=== PATIENT | female | born 1970 | race Caucasian/White ===

== ENCOUNTER 2016-07-16 11:57 | Emergency (ER) | payer MEDICARE, MEDICAID ==
[2016-07-16] MEDS ORDERED: Sodium Chloride 0.9% 10 ML Syringe FLUSH PRN ×2 (12:07→12:14)
[2016-07-16] MEDS ORDERED: Sodium Chloride 0.9% 1,000 ML IV ONE (12:30)
[2016-07-16] MEDS ORDERED: Piperacillin/Tazobactam 3.375 GM in Sodium Chloride 0.9% 100 ML IV ONE (12:33)
[2016-07-16] MEDS ORDERED: Naloxone 0.4 MG/ML SDV ONE (12:41)
[2016-07-16] MEDS ORDERED: Rocuronium 50 MG/5 ML Vial ONE (13:00)
[2016-07-16] MEDS ORDERED: Succinylcholine 200 MG/10 ML MDV ONE (13:08)
[2016-07-16] MEDS ORDERED: Chlorhexidine Gluconate 0.12% Oral Rinse 15 ML Cup ONE ×2 (13:08→14:38)
[2016-07-16] MEDS ORDERED: Etomidate 2 MG/ML 10 ML SDV ONE (13:08)
[2016-07-16] MEDS ORDERED: Midazolam 1 MG/ML 2 ML SDV IVPUSH ONE (13:21)
[2016-07-16] MEDS ORDERED: Vancomycin 1 GM SDV ONE (13:25)
[2016-07-16] MEDS ORDERED: Sodium Chloride 0.9% 250 ML ONE (13:26)
[2016-07-16 13:31] LABS: CHLORIDE,CL 99 mmol/L (98-107); SODIUM,NA 133 mmol/L (136-145)
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
== END 2016-07-16 13:40 | disposition short-term general hospital (02) ==
LOC: VM.ED 11:57
PROC: 0BH17EZ Insertion of Endotracheal Airway into Trachea, Via Natural or Artificial Opening (ICD-10-PCS; principal; 2016-07-16)
DX: J96.91 Respiratory failure, unspecified with hypoxia (principal); T40.601A Poisoning by unspecified narcotics, accidental (unintentional), initial encounter; Y92.019 Unspecified place in single-family (private) house as the place of occurrence of the external cause; J69.0 Pneumonitis due to inhalation of food and vomit; I25.10 Atherosclerotic heart disease of native coronary artery without angina pectoris; I10 Essential (primary) hypertension; J45.909 Unspecified asthma, uncomplicated; J44.9 Chronic obstructive pulmonary disease, unspecified; K21.9 Gastro-esophageal reflux disease without esophagitis; G82.20 Paraplegia, unspecified; F41.8 Other specified anxiety disorders; F11.10 Opioid abuse, uncomplicated; Z79.899 Other long term (current) drug therapy
CPT/HCPCS: 31500; 36415; 36600; 71010; 80053; 80305; 81001; 82550; 82553; 82803; 83605; 83880; 84443; 84484; 85025; 85610; 86140; 87040; 94002; 96361; 96365; 96374; 96375; 99291; G0480; 93005; 99285-GF; A9270-GY; J0330; J2250; J2310; J2543; J3370; J7030; J7050

== ENCOUNTER 2016-12-14 15:34 | Emergency (ER) | payer MEDICARE, MEDICAID ==
[2016-12-14 15:52] VITALS: BP 104/66
[2016-12-14] MEDS ORDERED: Take Home: Ciprofloxacin 500 MG Tab, 2 Tab Pack PO ONE (17:49)
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
== END 2016-12-14 18:13 | disposition home or self-care (01) ==
LOC: VM.ED 15:34
DX: N39.0 Urinary tract infection, site not specified (principal); F32.9 Major depressive disorder, single episode, unspecified; Z88.2 Allergy status to sulfonamides
CPT/HCPCS: 51798; 81001; 87086; 87186; 99283; A9270

== ENCOUNTER 2016-12-20 07:58 | Inpatient (IN) | payer MEDICARE, MEDICAID ==
[2016-12-20 09:41] LABS: CHLORIDE,CL 108 mmol/L (98-107); SODIUM,NA 140 mmol/L (136-145)
[2016-12-20] MEDS ORDERED: Sodium Chloride 0.9% 1,000 ML IV ONE (09:54)
[2016-12-20] MEDS ORDERED: Levofloxacin/Dextrose 5%-Water 750 MG in Premix Bag 1 BAG IV ONE (09:54)
[2016-12-20] MEDS ORDERED: Piperacillin/Tazobactam 4.5 GM in Sodium Chloride 0.9% 100 ML IV SCH (12:00)
[2016-12-20] MEDS ORDERED: Nicotine 21 MG/24 Hr Patch TRDERM SCH (12:00)
[2016-12-20] MEDS ORDERED: NYSTATIN TOP PRN (12:03)
[2016-12-20] MEDS ORDERED: guaiFENesin 600 MG Tab.ER PO PRN (12:03)
[2016-12-20] MEDS ORDERED: NALOXONE HCL NS PRN (12:03)
[2016-12-20] MEDS ORDERED: Sodium Chloride 0.9% 1,000 ML IV SCH (12:15)
[2016-12-20] MEDS ORDERED: Albuterol 8 GM Inhaler INH PRN ×2 (12:22→13:14)
[2016-12-20] MEDS ORDERED: Calcium Carbonate/Vitamin D3 1250 MG-200 Unit Tab PO SCH (12:30)
[2016-12-20] MEDS ORDERED: Albuterol 0.083% 2.5 MG/3 ML Neb Soln ONE (12:37)
[2016-12-20] MEDS ORDERED: hydrOXYzine HCl 25 MG Tab PO PRN (13:07)
[2016-12-20] MEDS ORDERED: Docusate Sodium 100 MG Cap PO PRN (13:07)
[2016-12-20] MEDS ORDERED: Take Home: Albuterol 6.7 GM Inhaler, 1 Inhaler Pack INH PRN (13:07)
[2016-12-20] MEDS: Naloxone 0.4 MG/ML SDV IV PRN ×2 (13:20→13:41)
[2016-12-20] MEDS ORDERED: Nystatin Crm 30 GM Tube TOP PRN (13:30)
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
[2016-12-20] MEDS ORDERED: Carvedilol 6.25 MG Tab PO SCH ×2 (13:45→18:00)
[2016-12-20] MEDS ORDERED: Gabapentin 300 MG Cap PO SCH (14:00)
[2016-12-20 14:06] VITALS: BP 154/86
[2016-12-20] MEDS ORDERED: Propofol 200 MG/20 ML SDV ONE (15:33)
[2016-12-20] MEDS ORDERED: Chlorhexidine Gluconate 0.12% Oral Rinse 15 ML Cup ONE (15:33)
[2016-12-20] MEDS ORDERED: Midazolam 1 MG/ML 2 ML SDV ONE (15:33)
[2016-12-20] MEDS ORDERED: Rocuronium 50 MG/5 ML Vial ONE (15:34)
[2016-12-20] MEDS ORDERED: Succinylcholine 200 MG/10 ML MDV ONE (15:34)
[2016-12-20] MEDS ORDERED: Piperacillin/Tazobactam 3.375 GM in Sodium Chloride 0.9% 100 ML IV SCH (16:00)
--- NOTE | 2016-12-20 16:21 | HP ---
CHIEF COMPLAINT: Change of status. HISTORY OF PRESENT ILLNESS: The patient is a 46-year-old female with chronic medical problems including chronic pain, chronic anxiety, and multiple medical problems; who was brought in by ambulance from [place]. Her said she was just not feeling quite right in the last couple of days. She had been coughing more. She had been treated for bladder infection from the emergency room with Cipro. It was found that the bacteria was resistant to Cipro, so she was just changed to Macrobid on 12/19/2016. I am not certain if she has started that medication. The patient is a very poor historian. She is very lethargic and keeps falling asleep. Apparently, her fentanyl patch was taken off, which did seem to help with some arousability when she was first seen by Jamie Perry in the emergency room. The patient has been coughing. She denies choking on anything. She tends to want to fall back to sleep. She does have nebulizers, but it is unclear at home when she last used a nebulizer. She has not choked on anything that she is aware of. The patient normally sees Dr. Malina Samayoa as her primary care provider. To note, the patient last had been hospitalized at [facility] on 07/16/2016 with acute respiratory failure with major depression. She has had a fentanyl overdose, major depression, protein malnutrition, bilateral ischemic decubitus ulcers, and osteomyelitis. The patient had been at that time on a ventilator. She had some lung atelectasis, septic shock. CURRENT MEDICATIONS: Lacosamide 100 mg tablet 1 tablet b.i.d.; trazodone 50 mg 1 tablet at bedtime; Klonopin 0.5 mg, she takes a half a pill in the morning and half a pill at bedtime; vitamin D 50,000 units 1 pill once a week; Nyamyc 100,000 units/gram powder topically twice a day; fentanyl 50 mcg patch every 72 hours; guaifenesin D 60/600, 1 pill every 12 hours as needed; Lyrica 150 mg 1 pill 3 times a day; omeprazole 20 mg 1 pill a day; Cymbalta 60 mg 1 pill in the morning with a 30-mg capsule, she then takes 1 capsule every evening; carvedilol 6.25 mg 1 pill twice a day; Tylenol 325 one pill 3 times a day; albuterol inhalation 2 puffs every 4 hours as needed; Colace 100 mg 1 pill twice a day as needed; Atarax 25 mg 1 pill every 6 hours as needed; multivitamin 1 pill a day; calcium carbonate 500 mg 1 pill a day; MiraLAX 1 pill a day; Neurontin 300 mg 2 pills every 8 hours; Proventil 1 inhalation every 4 hours as needed; acetic acid 0.25% solution, she uses 10 mL to irrigate her pressure ulcer dressings; she has a Eyebrid Blaze infusion pump, which has intrathecal pump with baclofen 2000 mcg/mL at a rate of 100.2 mcg per day, number to call is [phone] for questions; Narcan 4 mg/10 mL spray into nostrils as needed; Cymbalta 30 mg 1 pill a day with 60-mg capsule, calcium carbonate 600+D one pill a day; ProAir 2 puffs every 4 to 6 hours as needed; nystatin powder she applies twice a day; simethicone 80 mg chewable every 4 hours as needed; recent use of Cipro for bladder infection and then just switched to Macrobid yesterday, and I am not certain if she started the medication. ALLERGIES: To sulfa. PAST MEDICAL HISTORY: The patient has chronic pain syndrome; she has had chronic depression; she has had neurogenic bladder; paraplegia; chronic anxiety disorder; intrathecal baclofen pump; seizure disorder; acute renal failure in the past; emphysema; she had a history of anemia; she has had protein-calorie malnutrition; iron deficiency anemia; hypertension; neuropathic pain; adrenal insufficiency; seizure disorder; agitation; mood disorder; neuropathic pain; insomnia; muscle spasms; paraplegia; she has had decubitus ulcers; presence of IVC filter; she has history of alcoholism, she has been abstinent; she is a smoker; she has had osteomyelitis; mucous plugging of her bronchi; and large liver. PAST SURGICAL HISTORY: She has had spinal rods in 2007, intrathecal baclofen pump in 2008, hysterectomy in 2007, partial appendectomy in 2009, skin flap surgery, she has had cholecystectomy in 1990, laparoscopic ileostomy in 2009, debridement procedure of right hip wound in 2012 and had a wound VAC at that time, she has had a in 1990 and 1992, debridement of right hip in 2012, tracheostomy in 2012, endoscopic gastrostomy in 2012, and small intestine surgery in 2010. She has had a rectal procedure for an ulcer in 2013, tracheostomy in 2013, PEG tube in 2013, debridement of ischial ulcer in 2013, pain control pump in 2014, debridement of right ulcer in 2014, she had tracheostomy in 2016, she had a feeding tube in 2016, exploratory lap on 08/19/2016 with takedown of gastric tube exploratory with large subcutaneous abscess, and she had a bronchoscopy on 09/03/2016. IMMUNIZATIONS: She has had a pneumococcal 23 on 04/08/2013, Tdap on 10/28/2007, and she has had flu shots. FAMILY MEDICAL HISTORY: Mother has had alcohol abuse. Father has had heart problems and heart disease. Paternal grandmother has had cancer. Paternal grandfather has had diabetes. Daughters had learning disabilities. Uncles had heart problems and heart disease. SOCIAL HISTORY: The patient is . She used to smoke up to 2 packs a day. She is now smoking E-cigarettes. Alcohol use, not current, sober since 2007. The patient is on disability. 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 She lives with her ex-. REVIEW OF SYSTEMS: She does have a cough. No vomiting. She does have chronic pain. She is lethargic and a poor historian. She does have ulcer on her buttocks. She does have a colostomy as well as a suprapubic catheter. PHYSICAL EXAMINATION: Vital Signs: The patient's blood pressure was 90/50, sats 96% on 3 L, pulse was 109, temperature was 96. Skin: [place], warm, and moist. HEENT: Pupils are equal and react to light. Pharynx is normal. She does cough. Heart: Slightly tachycardic. No murmurs heard. Lungs: Inspiratory crackles bilaterally. Abdomen: Bowel sounds present. She has colostomy as well as her suprapubic catheter. : Buttock area was not examined. She has a diaper on. Neuro: She does have slender lower legs with no feeling. She does not move. To note, the patient is quite lethargic. LABORATORY DATA: White blood cell count is 18.4, hemoglobin 14.9, her platelet count is 206 with 83 segs, 6 lymphocytes, and monos 8.7. Lactic acid normal at 0.5. CRP elevated at 2.6 and magnesium 2.1. Sodium 140, potassium 4.8, creatinine 1.0, BUN 54, glucose 85, and magnesium 2.1. AST of 47 and ALT 39. Troponin negative. Her CK was normal at 1.2. Urinalysis was dark turbid, 30 units of protein, positive nitrite, small bilirubin, leukocyte esterase positive, 75 to 100 white blood cells, moderate squamous epithelial cells, and bacteria moderate. Urine toxicology was negative. IMAGING: Chest x-ray does show bilateral infiltrates. A head CT was done of which preliminary report was negative. EKG shows normal sinus rhythm. Nonspecific T-wave. IMPRESSION: 1. Pneumonia. 2. Lethargy. 3. Delirium, multifactorial, possibly drug use versus medical illness. 4. History of chronic pain syndrome. 5. Recent urinary tract infection. 6. Paraplegia. 7. Known intrathecal pump. PLAN: The patient will be admitted to acute care. We will give her an albuterol neb right now. She will be given IV hydration. We will place her on Zosyn 4.5 grams IV q.6 hours. Code level status was discussed with the patient. She kept drifting off into sleep, and I am not certain if she understood what I was asking her. I did ask her code level status, and he states that she is code level 1. So, we will still go by those wishes. To note, her Duragesic patch was removed on admission. Blood gases are pending at the time of this admission summary. If the patient's status deteriorates, she may need transfer to a higher level of care hospital. She may possibly need BiPAP to be placed on her. She may need Narcan to be given for lethargy as well. The patient's status is somewhat trepidacious. She will also need continued wound cares for her ischial ulcers. Dr. Malina Samayoa is made aware of the patient's admission. GM12/20/2016 13:25:15 MODL: 12/20/2016 16:14:56 /[id number]
--- NOTE | 2016-12-20 17:06 | PN ---
Progress Note for HUGO ECHEVARRIA Date: 12/20/2016 Room #: VM.201 SUBJECTIVE: The patient had a change of respiratory status since being admitted to the floor. She became very somnolent. She did require 2 doses of Narcan to help improve sensation. Blood gases from admission became available, at first I thought her venous blood gases, however, when they were repeated they were actually worse venous and so her pH was 7.07 , pCO2 69, pO2 40 , HCO3 23. The patient then was going to have BiPAP placed. Because of the amount of nursing care she required and to keep her stable with breathing as she did tend to only have 86% saturations when she had been on 15 L. I did initiate transfer to [facility], at 15:00, talked to hospitalist Dr. Pedroza. He did agree to accept the patient. He recommended that she be intubated prior to transfer to have safety with transfer because of concerns with respiratory problems. The patient did agree to be intubated and this was carried ou by Fernando Matos CRNA. She did become hypotensive after coming intubated with blood pressure going down to 60/40. The patient was placed in reverse Trendelenburg and a saline bolus of 100 mL were given, which did improve blood pressure up to 80/40. Breath sounds hear A chest x-ray was repeated after intubation at 1549 hours and it did show ET tube to be appropriately placed. The patient was sent by [facility] transport to [facility]. Family had been updated by nursing staff about patient's need to transfer. Her vital signs have improved at the time of transfer. Time spent at bedside with patient with change in status was 60 minutes. GM12/20/2016 16:07:40 MODL: 12/20/2016 16:56:31 /[id number] MTDD
[2016-12-20] MEDS ORDERED: Pregabalin 50 MG Cap PO SCH (20:00)
[2016-12-20] MEDS ORDERED: traZODone 50 MG Tab PO SCH (20:00)
[2016-12-20] MEDS ORDERED: ClonazePAM 0.5 MG Tab PO SCH (20:00)
[2016-12-20] MEDS ORDERED: DULoxetine 30 MG Cap PO SCH (20:00)
[2016-12-20] MEDS ORDERED: LACOSAMIDE 100 MG PO SCH (20:00)
--- NOTE | 2016-12-20 22:13 | PROC ---
TITLE: Intubation note. I was called by Dr. Jeannine So to intubate this patient. The patient is being transferred and was suffering from hypoxia and respiratory distress. When I arrived, she was on the BiPAP, she was breathing a little more regularly, pulse rate was 146, blood pressure was 111/66, respiratory rate was elevated. The patient is awake and conversive appropriately. The intubation was deemed necessary by the receiving physician at [facility] at the ICU. I did discuss the intubation with the patient. Described the risks and benefits. The patient understands this. The patient was somewhat reticent and I did have Dr. So speak with her again, and at that point, she did agree to be intubated. The patient was given 2 mg of Versed IV. That was allowed to circulate and the heart rate came down to the 120s. The patient's breathing was also less tachypnea. At that point, equipment had been ready including #3 MAC with the light was checked. This is 7.5 endotracheal tube with a stiff stylette. The patient was then ambued for approximately 1-2 minutes with 100% of O2. I did give propofol 100 mg IV followed shortly by 40 mg of succinylcholine. While I was waiting that to take effect and the patient became somewhat somnolent, I did rinse her pharynx with ChloraPrep. I did swab it twice. After ambuing it for 3 to 4 breaths after that, saturation remained high around 99%. I then did use direct visualization with #3 MAC and saw good visualization of the cords. I placed a 7.5 tube, advanced it to the cords. I did have some difficulty maneuvering between the cords as the patient's larynx was posterior and somewhat deep. At that point, I was able to reposition the tube into the glottic opening and passed it between the cords. At that point, the stylette was removed. The balloon was inflated to 10 mL. The patient was ambued. Breath sounds were positive bilaterally in both lungs and negative over the epigastric area. Tube was filled with copious amounts of greenish light pea soup colored liquid, that was suctioned, the patient was lavaged with 5 mL and ambued 3-4 times and then re-suctioned again. Sats maintained 99 throughout this process. At that point, she bagged easily. The tube was secured at 23 cm at the teeth. Chest x-ray was obtained. The tube was withdrawn about 1 cm and resecured. The patient was placed on a ventilator with a tidal volume of 400, rate of 12, +5 cm water PEEP. I did attempt an IV twice, once on the left and once on the right, neither time it was successful. However, did get good blood return on the right but was unable to thread. Her blood pressure had dropped as well, trying to start the IV with her decreased blood pressure. The IV was started, her blood pressure had come up to the 90s systolically. Before starting the IV, I had also given her 50 mg of rocuronium. At that point, the patient was transferred to the care of the ambulance crew, report was given. CK: 12/20/2016 16:24:48 MODL: 12/20/2016 22:06:35 /[id number]
[2016-12-21] MEDS ORDERED: Omeprazole 20 MG Cap.CR PO SCH (07:00)
[2016-12-21] MEDS ORDERED: DULoxetine 30 MG Cap PO SCH (07:00)
[2016-12-21] MEDS ORDERED: ACETIC ACID MC SCH (08:00)
[2016-12-21] MEDS ORDERED: Enoxaparin 40 MG/0.4 ML Syringe SUBCUT SCH (08:00)
[2016-12-21] MEDS ORDERED: Multivitamins with Iron/Calcium/Folic Acid/Minerals Tab PO SCH (08:00)
[2016-12-21] MEDS ORDERED: BACLOFEN IT SCH (08:00)
[2016-12-21] MEDS ORDERED: Polyethylene Glycol 3350 Powder 17 GM Packet PO SCH (08:00)
--- NOTE | 2016-12-21 13:53 | DISCH ---
PRIMARY DIAGNOSES: 1. Acute respiratory distress, multifactorial reasons. 2. Narcotic overuse. 3. Sepsis. 4. Pneumonia. 5. Hypoxemia related to pneumonia and respiratory distress. 6. Depression. 7. Urinary tract infection with chronic indwelling catheter. 8. Paraplegia. 9. Chronic pain syndrome. SUMMARY OF ADMIT HISTORY AND PHYSICAL: The patient is a 46-year-old female, who presents to the emergency room from [place]. Her had called and sent her by ambulance because she was acting more confused over the past few days. She had been on antibiotic in the clinic, but the culture just came back that it was resistant to Cipro, so she was switched to Macrobid. The patient was seen initially by Jamie Perry in the emergency room. The patient was noted to be somewhat somnolent and so her Duragesic patch had been removed. She seemed to become more arousable after that happened however. When she came to the floor, she became much more obtunded. She required 2 doses of Narcan and her sats had dropped down to 80%. Blood gases had been obtained which were not clear and venous gas has showed her pH 7.07, pCO2 32, PO2 40. LABORATORY DATA: In the emergency room showed her white blood cell count 18.4, hemoglobin 14.9, platelets 206. Sodium 140, potassium 4.8, bicarb 27, BUN 17, creatinine 1.1, GFR 54, glucose 85, lactic acid 1.5, magnesium 2.1, AST 47, alkaline phosphatase 223. Troponin negative. Urinalysis was very abnormal. The patient's chest x-ray showed bilateral pneumonia. She did have a head CT which apparently was negative for any acute injuries. EKG showed sinus rhythm without any acute changes. SUMMARY OF HOSPITAL COURSE: She was admitted to the floor and was given IV hydration. She was placed on Zosyn for pneumonia coverage. Because of concerns with difficulty breathing and respirations, we gave her Narcan and then we had contacted [facility] to initiate transfer. Went to speak with Dr. Diehl, fire hydrant operator, he recommended the patient to be intubated. The patient initially was hesitant about wanting to be intubated, however stated that we were not able to safely transfer her in her current respiratory state and so she did require sedation for intubation. She did become hypotensive. After initial intubation, she was placed in reverse Trendelenburg. Given IV bolus of fluids. She was also given 1 g of Rocephin for antibiotic coverage. The patient will go by [facility] to [facility]. MEDICATIONS: At the time of transfer are fentanyl 50 mcg patch every 72 hours, simethicone 80 mg q.4 hours p.r.n., Afrin nasal spray p.r.n., ibuprofen 400 mg t.i.d., calcium carbonate 500 mg 1 pill daily, Habitrol 21 mg every day, guaifenesin 600 mg b.i.d. p.r.n., albuterol 2 g q.4 hours p.r.n., Narcan nasal spray 1 spray daily p.r.n.,, nystatin 1 applicator b.i.d., Zosyn 4.5 g IV q.6 hours, vitamin D 50,000 units every week, gabapentin 600 mg q.8 hours, albuterol nebs q.4 hours p.r.n., albuterol MDI 2 puffs q.4 hours p.r.n., docusate 100 mg 1 p.o. b.i.d. p.r.n., hydroxyzine 25 mg q.6 hours p.r.n., nystatin cream topical b.i.d. p.r.n., carvedilol 6.25 mg b.i.d. She received vancomycin, lacosamide 100 mg 1 p.o. b.i.d., Lyrica 150 mg t.i.d., clonazepam 0.25 mg b.i.d., trazodone 50 mg at bedtime, Cymbalta 90 mg at breakfast, Lovenox 40 mg subcu daily, calcium with vitamin D 1 pill daily, acetic acid 1 mL daily, multivitamins 1 pill daily, omeprazole 20 mg 1 pill daily, MiraLAX 17 g daily, Baclofen 1000-2 mcg pump daily, clonazepam 0.25 mg at bedtime. The patient is allergic to sulfa. The patient is full code level status. GM12/20/2016 16:04:47 MODL: 12/21/2016 13:44:26 /[id number] MTDD
[2016-12-24] MEDS ORDERED: Ergocalciferol (Vitamin D2) 50,000 Unit Cap PO SCH (08:00)
[2016-12-28] MEDS ORDERED: ClonazePAM 0.5 MG Tab PO SCH (20:00)
[2017-01-04] MEDS ORDERED: ClonazePAM 0.5 MG Tab PO SCH (20:00)
== END 2016-12-20 16:30 | disposition short-term general hospital (02) | DRG 871 ==
LOC: VM.ED 07:58 → VM.MS 11:21
PROVIDERS: ADMIT Family Medicine; ATTEND Internal Medicine
PROC: 0BH17EZ Insertion of Endotracheal Airway into Trachea, Via Natural or Artificial Opening (ICD-10-PCS; principal; 2016-12-20)
PROC: 5A1935Z Respiratory Ventilation, Less than 24 Consecutive Hours (ICD-10-PCS; 2016-12-20)
DX: A41.9 Sepsis, unspecified organism (principal); J18.9 Pneumonia, unspecified organism; J80 Acute respiratory distress syndrome; N39.0 Urinary tract infection, site not specified; R53.83 Other fatigue; G95.89 Other specified diseases of spinal cord; G82.20 Paraplegia, unspecified; I10 Essential (primary) hypertension; J44.9 Chronic obstructive pulmonary disease, unspecified; F41.9 Anxiety disorder, unspecified; F32.9 Major depressive disorder, single episode, unspecified; K21.9 Gastro-esophageal reflux disease without esophagitis; N31.9 Neuromuscular dysfunction of bladder, unspecified; F11.90 Opioid use, unspecified, uncomplicated; F11.10 Opioid abuse, uncomplicated; G89.4 Chronic pain syndrome; F17.210 Nicotine dependence, cigarettes, uncomplicated; Z88.2 Allergy status to sulfonamides; Z79.899 Other long term (current) drug therapy
CPT/HCPCS: 36415; 70450; 71010; 80053; 80305; 81001; 82550; 82553; 83605; 83735; 84100; 84484; 85025; 86140; 87040 ×2; 96365; 96366; 99285; J1956; J7030; 31500; 36600; 82803; 87070; 87077; 87147; 87186; 87205; 93005; 94002; 94760; 96361; 99284-GF; A9270-GY; J0330; J2250; J2310; J2543; J2704; J3370; J7050; J7620-GY

== ENCOUNTER 2017-05-02 21:09 | Inpatient (IN) | payer MEDICARE, MEDICAID ==
[2017-05-02] MEDS ORDERED: Sodium Chloride 0.9% 10 ML Syringe FLUSH PRN (21:19)
[2017-05-02] MEDS ORDERED: Sodium Chloride 0.9% 1,000 ML IV ONE (21:20)
[2017-05-02] MEDS ORDERED: Albuterol/Ipratropium 3.0-0.5 MG/3 ML Neb Soln NEB ONE (21:20)
[2017-05-02] MEDS ORDERED: methylPREDNISolone Sodium Succinate 125 MG/2 ML SDV IVPUSH ONE (21:21)
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
[2017-05-02 22:29] LABS: CHLORIDE,CL 101 mmol/L (98-107); SODIUM,NA 140 mmol/L (136-145)
[2017-05-02] MEDS ORDERED: Iopamidol 612 MG/ML 100 ML Bottle IVPUSH ONE (23:16)
[2017-05-03] MEDS ORDERED: Docusate Sodium 100 MG Cap PO PRN (01:40)
[2017-05-03] MEDS ORDERED: methylPREDNISolone Sodium Succinate 40 MG/1 ML SDV IVPUSH SCH (01:45)
[2017-05-03] MEDS ORDERED: Lactated Ringers 1,000 ML IV SCH (01:45)
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
[2017-05-03] MEDS ORDERED: Nystatin Crm 30 GM Tube TOP PRN (02:30)
[2017-05-03] MEDS: Albuterol/Ipratropium 3.0-0.5 MG/3 ML Neb Soln NEB SCH ×6 (02:31→23:21)
[2017-05-03] MEDS: DULoxetine 30 MG Cap PO SCH ×2 (05:51→06:16)
[2017-05-03 07:29] LABS: CHLORIDE,CL 104 mmol/L (98-107); SODIUM,NA 141 mmol/L (136-145)
[2017-05-03] MEDS ORDERED: Ergocalciferol (Vitamin D2) 50,000 Unit Cap PO SCH (08:00)
[2017-05-03] MEDS ORDERED: Gabapentin 300 MG Cap PO SCH (08:00)
[2017-05-03] MEDS ORDERED: Cephalexin 500 MG Cap PO SCH (08:00)
[2017-05-03] MEDS ORDERED: BACLOFEN IT SCH (08:00)
[2017-05-03] MEDS ORDERED: fentaNYL 50 MCG/HR Transdermal Patch TRDERM SCH ×2 (08:00→10:00)
[2017-05-03] MEDS: Nicotine 21 MG/24 Hr Patch TRDERM SCH (08:16)
[2017-05-03] MEDS: Carvedilol 6.25 MG Tab PO SCH ×2 (08:18→18:28)
[2017-05-03] MEDS: Calcium Carbonate/Vitamin D3 1250 MG-200 Unit Tab PO SCH (08:19)
[2017-05-03] MEDS: methylPREDNISolone Sodium Succinate 40 MG/1 ML SDV IVPUSH SCH ×3 (08:19→23:21)
[2017-05-03] MEDS: Ferrous Sulfate Liq 300 MG/5 ML Cup PO SCH ×4 (08:20→18:32)
[2017-05-03] MEDS: Multivitamin, Stress Formula with Zinc Tab PO SCH (08:20)
[2017-05-03] MEDS: Polyethylene Glycol 3350 Powder 17 GM Packet PO SCH (08:20)
[2017-05-03] MEDS: Calcium Carbonate 750 MG Tab.Chew PO SCH (08:20)
[2017-05-03] MEDS: Valproic Acid 250 MG/5 ML Soln 5 ML UD Cup PO SCH ×2 (08:20→20:08)
[2017-05-03] MEDS: Omeprazole 20 MG Cap.CR PO SCH (08:20)
[2017-05-03] MEDS: Amoxicillin/Clavulanate K 875-125 MG Tab PO SCH ×2 (10:07→20:01)
[2017-05-03] MEDS: LACOSAMIDE 100 MG PO SCH ×2 (10:08→20:01)
[2017-05-03] MEDS: Gabapentin 400 MG Cap PO SCH ×3 (10:08→20:01)
--- NOTE | 2017-05-03 10:47 | PN ---
Progress Note for HUGO ECHEVARRIA Date: 05/03/2017 Room #: VM.204 SUBJECTIVE: This is on a 46-year-old admitted inpatient at 1 a.m. last night. She presented to the ER last evening with cough and shortness of breath over 2 days. She has a longstanding history of recurrent pneumonias from aspiration usually due to sedation from narcotics. She is not overly sleepy when I conversed with her this morning. She is anxious to get out of here. She actually wanted to go home last night, just asked for them to give her oxygen. Her sats were in the mid 80s on room air, did go up over 90 on 2-3 L. This morning when we took her off oxygen, she went back down to 86%. She is still having some coughing. She has been breathing. She does carry diagnosis of emphysema and has been a longtime smoker. She had been using her nebulizers at home. She has recently started smoking again. She has very extensive complicated past medical history including 2 intubations in the last year in long stays at [facility] with recent discharge around 2016. She also has had a spinal cord injury many years ago and has paraplegia. Her pain is related to neurogenic pain. She has been to multiple pain specialists, even the pain clinic. She has been weaned down to 50 mcg of fentanyl ever since June, but did have a 75 mcg patch on and home health states they believe she has extra narcotics at home that she has been taking. She otherwise states has no pain. She feels good. She was due to have her suprapubic catheter changed and see me for a [id number] visit for a hospital bed today. She has been afebrile. Her white count was normal. Due to her hypoxia, CT for PE protocol was done which did not show any PE. It showed some bibasilar atelectasis and scarring and some possible developing pneumonitis. She has been on Keflex 4 times a day since 04/25 for her buttock ulcer. I did examine that today. It is deep. They have been doing wet-to-dry dressing twice daily. There is no drainage. It looks clean. There are no signs of infection there. OBJECTIVE: Vital Signs: Temperature 97.5, pulse 60, blood pressure 126/81, respiratory rate 16, and O2 of 97% on 3 L. It had just been turned up. General: She is in no acute distress. Heart: Regular rate and rhythm. Respiratory: Lungs sounds are clear to auscultation in the upper bases. Decreased with bilateral expiratory wheezing and rhonchi appreciated in the bases. Abdomen: She has an ostomy and suprapubic cath in place. Otherwise nontender. Extremities: Right leg is warm. 2+ dorsal pedis pulse. No edema. Left leg slightly cool. It was out of the covers. She does have a 1+ dorsal pedis pulse noted there. Mental Status: She is alert. She is orientated x3. She recognizes me. LABORATORY DATA: Otherwise her lab work this morning does show white count to have dropped slightly to 3.2, hemoglobin dropped slightly to 11.9, platelets 300. D-dimer had been 3, sodium 141, potassium 4, chloride 104, bicarb 26, BUN 7, creatinine 0.5, glucose 137, calcium 8.7. CRP 9.6. ASSESSMENT AND PLAN: 1. Acute hypoxic respiratory failure. The patient is not on oxygen at home. She is requiring oxygen here. At this point we will continue her on continuous pulse oximetry. We will continue her on scheduled q.4 hours nebs. We will continue IV steroids 40 mg twice daily. We will switch her Keflex over to Augmentin which would cover for aspiration pneumonia and other community-acquired pneumonias as well. She has had significant history of MRSA and other resistant organisms, but at this point, she is not overtly septic. If that were to happen, I would upgrade her to vanco as well as and possibly Zosyn otherwise. 2. Community-acquired pneumonia versus aspiration. She is on Augmentin now day #1. 3. History of emphysema. This diagnosis was given to her in [place]. She least has some reactive airway disease currently and is a smoker. We will cover her with steroids. 4. Stage IV pressure ulcers to the right and left buttocks, appears to be clean. No signs of acute drainage or infection. The wounds are deep. She has had multiple previous plastic surgeries before. I expect that these would heal better she quit smoking. 5. Suprapubic cath. Due for change today through the clinic. Per hospital policy these are not changed by nursing. We will work on getting it changed after discharge. 6. History of seizures. We will continue her home medications. 7. History of hypertension. She is on Coreg. 8. History of depression and anxiety. We will continue her home medications. There is some concern that I did find her on the 75 mcg patch and she is supposed to be on the 50 for chronic pain. We will readjust that. 9. Chronic pain. She is only on a fentanyl patch. No p.r.n. opioids. This has been titrated down due to her previous intubations. She also has Narcan available. I do not feel in her current illness and situation with hypoxia she is safe to return home and requires continued acute care in the hospital. The patient will continue acute cares with IV steroids. We will start her on oral Augmentin and stop the Keflex. We will get her on a 50 mcg fentanyl patch. We will do continuous pulse oximetry. We will do scheduled nebs. PT/OT assessments will not be done as she is already on Home Health. ADDENDUM: She was seen [id number] by me on 05/03/2017 and does require a hospital bed with pressure relieving mattress given her stage IV pressure ulcers on the right 0.1 x 1 x 3 cm and 3 x 3 x 3 cm on the left. Thus, the stage in size of the ulcers were obtained on the 04/18/2017 nurse home health visit. She is at risk for further skin breakdown and ongoing skin integrity issues without this hospital bed. Due to her paraplegia, she is only able to partially position herself towards the left side with assist of the bed rail and is unable to position to her right side at all. Due to this inability to effectively reposition herself, she is on the back most of the day and night which leads to ongoing pressure ulcers in her full/figueroa size bed at home. This will facilitate offloading, promote wound healing and decrease caregiver burden with ADLs. Dr. Samayoa dictating a [id number] with the patient on 05/03/17 who would benefit from a hospital bed with bilateral bed rails and a pressure relieving mattress. PHILA: 05/03/2017 10:05:51 MODL: 05/03/2017 10:33:51 /[id number] VITALY
[2017-05-03] MEDS: Enoxaparin 40 MG/0.4 ML Syringe SUBCUT SCH (11:44)
[2017-05-03] MEDS ORDERED: DULoxetine 30 MG Cap PO SCH (20:00)
[2017-05-03] MEDS ORDERED: QUEtiapine 25 MG Tab PO SCH (20:00)
[2017-05-03] MEDS: Acetaminophen 325 MG Tab PO PRN (20:09)
[2017-05-04] MEDS: Acetaminophen 325 MG Tab PO PRN ×2 (00:22→16:16)
[2017-05-04] MEDS: Albuterol/Ipratropium 3.0-0.5 MG/3 ML Neb Soln NEB SCH ×4 (02:27→16:16)
[2017-05-04] MEDS: DULoxetine 30 MG Cap PO SCH (06:05)
[2017-05-04] MEDS ORDERED: [UNRECOGNIZED DRUG - REMARK] SCH (08:00)
[2017-05-04 08:18] LABS: CHLORIDE,CL 105 mmol/L (98-107); SODIUM,NA 141 mmol/L (136-145)
[2017-05-04] MEDS: Calcium Carbonate/Vitamin D3 1250 MG-200 Unit Tab PO SCH ×2 (08:20→08:24)
[2017-05-04] MEDS: Gabapentin 400 MG Cap PO SCH ×2 (08:20→12:22)
[2017-05-04] MEDS: Carvedilol 6.25 MG Tab PO SCH (08:20)
[2017-05-04] MEDS: Omeprazole 20 MG Cap.CR PO SCH (08:20)
[2017-05-04] MEDS: Multivitamin, Stress Formula with Zinc Tab PO SCH ×2 (08:21→08:24)
[2017-05-04] MEDS: Nicotine 21 MG/24 Hr Patch TRDERM SCH (08:21)
[2017-05-04] MEDS: LACOSAMIDE 100 MG PO SCH (08:21)
[2017-05-04] MEDS: Amoxicillin/Clavulanate K 875-125 MG Tab PO SCH (08:21)
[2017-05-04] MEDS: Enoxaparin 40 MG/0.4 ML Syringe SUBCUT SCH (08:22)
[2017-05-04] MEDS: Polyethylene Glycol 3350 Powder 17 GM Packet PO SCH (08:22)
[2017-05-04] MEDS: Valproic Acid 250 MG/5 ML Soln 5 ML UD Cup PO SCH (08:22)
[2017-05-04] MEDS: Ferrous Sulfate Liq 300 MG/5 ML Cup PO SCH ×2 (08:22→11:38)
[2017-05-04] MEDS: Calcium Carbonate 750 MG Tab.Chew PO SCH (08:22)
[2017-05-04] MEDS: methylPREDNISolone Sodium Succinate 40 MG/1 ML SDV IVPUSH SCH (08:25)
[2017-05-04] MEDS ORDERED: predniSONE 20 MG Tab PO SCH (08:45)
--- NOTE | 2017-05-04 10:24 | PCM.DCSUM1 ---
Discharge Summary - Hospital Course Brief History: Ms. Celaya is a 46 yo female admitted with hypoxic respiratory failure secondary to aspiration pneumonia after presenting with shortness of breath. - Discharge Data Discharge Date: 05/04/17 Discharge Disposition: Home, W Home Health Agency 06 Condition: Fair - Discharge Diagnosis/Problem(s) (1) Acute respiratory failure with hypoxia SNOMED Code(s): 80039430 ICD Code: J96.01 - ACUTE RESPIRATORY FAILURE WITH HYPOXIA Status: Acute Current Visit: Yes Problem Details: The patient was requiring oxygen initially to keep her saturations above 90%. She has been treated for pneumonia and a COPD exacerbation as below. As of this morning, she has been weaned off of oxygen completely and is doing well. She wishes to be discharged home today. (2) Aspiration pneumonia SNOMED Code(s): 669802398 ICD Code: J69.0 - PNEUMONITIS DUE TO INHALATION OF FOOD AND VOMIT Status: Acute Current Visit: Yes Problem Details: She had evidence of pneumonitis on her CT scan, which is felt to be aspiration in light of her history. CT scan excluded PE as a cause for her hypoxia. She has been treated with augmentin and her symptoms are improving. Qualifiers: Aspiration pneumonia type: unspecified Laterality: unspecified laterality Lung location: unspecified part of lung Qualified Code(s): J69.0 - Pneumonitis due to inhalation of food and vomit (3) Pulmonary emphysema SNOMED Code(s): 71440525 ICD Code: J43.9 - EMPHYSEMA, UNSPECIFIED Status: Acute Current Visit: No Problem Details: Due to significant wheezing, it is also felt that a COPD exacerbation is also contributing to her symptoms. She was treated with DuoNebs and SoluMedrol. Her symptoms are improved. She continues with significant wheezing and will be transitioned to prednisone today. Otherwise, will follow- up on this as an outpatient. Qualifiers: Emphysema type: unspecified Qualified Code(s): J43.9 - Emphysema, unspecified (4) Decubitus ulcer of buttock, stage 4 SNOMED Code(s): 16532221299039348 ICD Code: L89.304 - PRESSURE ULCER OF UNSPECIFIED BUTTOCK, STAGE 4 Status: Chronic Current Visit: No Problem Details: This was felt to look better from previous. Home wound cares continued. Qualifiers: Laterality: unspecified laterality Qualified Code(s): L89.304 - Pressure ulcer of unspecified buttock, stage 4 (5) Hypertension SNOMED Code(s): 83856675 ICD Code: I10 - ESSENTIAL (PRIMARY) HYPERTENSION Status: Chronic Priority : Medium Current Visit: No Problem Details: Blood pressures under good control despite no current medical therapy. Qualifiers: Hypertension type: essential hypertension Qualified Code(s): I10 - Essential (primary) hypertension (6) Chronic pain SNOMED Code(s): 53036634 ICD Code: G89.29 - OTHER CHRONIC PAIN Status: Chronic Priority: Medium Current Visit: No Problem Details: Home medications were continued without any incident. (7) Neurogenic bladder SNOMED Code(s): 361572010 ICD Code: N31.9 - NEUROMUSCULAR DYSFUNCTION OF BLADDER, UNSPECIFIED Status : Chronic Priority: Medium Current Visit: No Problem Details: Suprapubic cath in place; due for a change, which can be done in clinic at her follow-up appointment. (8) Seizure disorder SNOMED Code(s): 755765491 ICD Code: G40.909 - EPILEPSY, UNSP, NOT INTRACTABLE, WITHOUT STATUS EPILEPTICUS Status: Chronic Current Visit: No Problem Details: Home medications continued without incident. - Patient Summary/Data Operative Procedure(s) Performed: none Complications: none Consults: Consultations 05/03/17 01:31 Consult to Case Management [CONS] Routine Respiratory Care Assess and Treatment [CONS] Routine Labs Pending at D/C: none Recommended Follow-up Testing/Procedures: none Planned Operative Procedure(s) after DC: none Hospital Course: See details as above. Her symptoms and oxygen requirements improved. She will be dismissed home today in stable condition and will follow up with Dr. Samayoa within the next week. - Patient Instructions Diet: Usual Diet as Tolerated Activity: As Tolerated - Discharge Plan Prescriptions/Med Rec: Amoxicillin/Clavulanate K [Augmentin 875 MG/125 MG] 1 tab PO Q12HR #10 tablet Nicotine [Habitrol] 21 mg TRDERM DAILY #30 patch Prednisone [IJD: predniSONE] 40 mg PO WITHBREAKFAST #8 tablet Home Medications: Home Meds DULoxetine [Cymbalta] 30 mg PO BEDTIME 07/20/13 [History] Lacosamide [Vimpat] 100 mg PO BID 07/20/13 [History] DULoxetine HCl [Cymbalta] 90 mg PO ACBREAKFAST 11/05/15 [History] Gabapentin [Neurontin] 800 mg PO TID 01/28/16 [History] Nystatin 1 appful TOP BID PRN 02/27/16 [History] Simethicone 80 mg PO Q4H PRN 02/27/16 [History] Baclofen [Gablofen] 1,000.2 mcg IT DAILY 06/05/16 [History] Ergocalciferol (Vitamin D2) [Vitamin D2] 50,000 unit PO WEEKLY 06/05/16 [History ] Naloxone HCl [Narcan] 1 spray NS ASDIRECTED PRN 06/05/16 [History] Acetaminophen [Tylenol] 325 mg PO TID PRN 12/20/16 [History] Albuterol Sulfate [Proair Hfa] 2 puff INH Q4HR PRN 12/20/16 [History] Albuterol [Proventil] 2.5 mg INH Q4H PRN 12/20/16 [History] Carvedilol [Coreg] 6.25 mg PO BIDMEALS 12/20/16 [History] fentaNYL [Fentanyl] 50 mcg TD Q72H 12/20/16 [History] Amoxicillin/Clavulanate K [Augmentin 875 MG/125 MG] 1 tab PO Q12HR #10 tablet [Rx] Calcium Carbonate 500 mg PO DAILY 05/03/17 [History] Calcium Carbonate/Vitamin D3 [Calcium 600 + Vit D Tablet] 1 tab PO DAILY [History] Docusate Sodium [Colace] 100 cap PO BID PRN 05/03/17 [History] Ferrous Sulfate 5 ml PO TID 05/03/17 [History] Multivitamin [Multi-Vitamin Daily] 1 tab PO DAILY 05/03/17 [History] Nicotine [Habitrol] 21 mg TRDERM DAILY #30 patch 05/03/17 [Rx] Omeprazole 20 mg PO DAILY 05/03/17 [History] Polyethylene Glycol 3350 [MiraLAX] 17 gm PO DAILY 05/03/17 [History] Pregabalin [Lyrica] 150 mg PO BID 05/03/17 [History] QUEtiapine [SEROquel] 25 mg PO BEDTIME 05/03/17 [History] Valproic Acid [Depakene Syrup] 10 ml PO BID 05/03/17 [History] Prednisone [IJD: predniSONE] 40 mg PO WITHBREAKFAST #8 tablet 05/04/17 [Rx] Forms: ED Department Discharge Referrals: Malina Samayoa DO [Primary Care Provider] - 05/31/17 3:20 pm (You have a follow up appt. with Dr. Lupe Samayoa on May 31, 2017 at 3:20--[facility]) - Discharge Summary/Plan Comment DC Time >30 min.: No - General Info Date of Service: 05/04/17 Subjective Update: Patient reports she is feeling well this am and desires to return home. She has been weaned off the oxygen. She is still wheezing but denies any shortness of breath. She denies any cough or chest pain; no fever or chills. She has been eating well without any vomiting or diarrhea. - Review of Systems General: Reports: No Symptoms HEENT: Reports: No Symptoms Pulmonary: Reports: No Symptoms Cardiovascular: Reports: No Symptoms Gastrointestinal: Reports: No Symptoms Genitourinary: Reports: No Symptoms Musculoskeletal: Reports: No Symptoms Skin: Reports: No Symptoms - Patient Data Vitals - Most Recent: Last Vital Signs Temp 37.0 C 05/04/17 06:00 Pulse 82 05/04/17 06:00 Resp 18 05/04/17 06:00 BP 140/90 05/04/17 06:00 Pulse Ox 97 05/04/17 08:36 Weight - Most Recent: 64.864 kg I&O - Last 24 hours: Intake & Output 05/03/17 05/04/17 05/04/17 22:59 06:59 14:59 Intake Total 1440 240 Output Total 275 1500 Balance -275 -60 240 Lab Results - Last 24 hrs: Laboratory Results - last 24 hr 05/04/17 05/04/17 Range/Units 07:44 07:44 WBC 5.8 (4.0-10.0) x10^3/uL RBC 4.06 (4.00-5.50) x10^6/uL Hgb 11.3 L (12.0-16.0) g/dL Hct 36.1 (33.0-47.0) % MCV 88.9 (78.0-93.0) fL MCH 27.8 (26.0-32.0) pg MCHC 31.3 L (32.0-36.0) g/dL RDW Coeff of Krystle 18.4 H (10.0-15.0) % Plt Count 314 (130-400) x10^3/uL Add Manual Diff Yes Neutrophils % (Manual) 78 (50-80) % Band Neutrophils % 1 (0-6) % Lymphocytes % (Manual) 16 L (25-50) % Monocytes % (Manual) 5 (2-11) % Nucleated RBCs 1 (0-5) /100WBC Platelet Estimate Adequate Anisocytosis 1+ slight H Sodium 141 (136-145) mmol/L Potassium 4.4 (3.5-5.1) mmol/L Chloride 105 (98-107) mmol/L Carbon Dioxide 26 (21-32) mmol/L BUN 13 (7-18) mg/dL Creatinine 0.5 L (0.55-1.02) mg/dL Est Cr Clr Drug Dosing 123.99 mL/min Estimated GFR (MDRD) > 60 Glucose 130 H (74-106) mg/dL Calcium 9.0 (8.5-10.1) mg/dL Med Orders - Current: Current Medications Acetaminophen (Tylenol) 325 mg PO TID PRN PRN Reason: Pain Last Admin: 05/04/17 00:22 Dose: 325 mg Albuterol/Ipratropium (Duoneb 3.0-0.5 Mg/3 Ml) 3 ml NEB Q4HRRT [facility] Last Admin: 05/04/17 07:18 Dose: 3 ml Amoxicillin/Clavulanate Potassium (Augmentin 875 Mg/125 Mg) 1 tab PO Q12HR [facility] Last Admin: 05/04/17 08:21 Dose: 1 tab Calcium Carbonate (Calcium Carbonate/Vitamin D 1250 Mg-200 Unit) 1 tab PO DAILY [facility] Last Admin: 05/04/17 08:24 Dose: Not Given Calcium Carbonate/Glycine (Tums Extra Strength) 750 mg PO DAILY [facility] Last Admin: 05/04/17 08:22 Dose: Not Given Carvedilol (Coreg) 6.25 mg PO BIDMEALS [facility] Last Admin: 05/04/17 08:20 Dose: 6.25 mg Docusate Sodium (Colace) 100 mg PO BID PRN PRN Reason: Constipation Duloxetine HCl (Cymbalta) 30 mg PO BEDTIME [facility] Last Admin: 05/03/17 20:01 Dose: 30 mg Duloxetine HCl (Cymbalta) 90 mg PO ACBREAKFAST [facility] Last Admin: 05/04/17 06:05 Dose: 90 mg Enoxaparin Sodium (Lovenox) 40 mg SUBCUT DAILY [facility] Last Admin: 05/04/17 08:22 Dose: 40 mg Ergocalciferol (Vitamin D2) 50,000 units PO Q7D [facility] Last Admin: 05/03/17 08:20 Dose: Not Given Fentanyl (Duragesic) 50 mcg TRDERM Q72H [facility] Last Admin: 05/03/17 10:08 Dose: 50 mcg Ferrous Sulfate (Ferrous Sulfate) 300 mg PO TIDMEALS [facility] Last Admin: 05/04/17 08:22 Dose: Not Given Gabapentin (Neurontin) 800 mg PO TID [facility] Last Admin: 05/04/17 08:20 Dose: 800 mg Nicotine (Habitrol) 21 mg TRDERM DAILY [facility] Last Admin: 05/04/17 08:21 Dose: 21 mg Baclofen [Gablofen] (It Pump) 0 mcg IT ASDIRECTED [facility] Non-Formulary Medication (Lacosamide [Vimpat]) 100 mg PO BID [facility] Last Admin: 05/04/17 08:21 Dose: 100 mg Assess For Influenza (Vaccine) 1 each .XX DAILY [facility] Nystatin (Nystatin Crm) 0 gm TOP BID PRN PRN Reason: Rash Omeprazole (Omeprazole) 20 mg PO DAILY [facility] Last Admin: 05/04/17 08:20 Dose: 20 mg Polyethylene Glycol (Miralax) 17 gm PO DAILY [facility] Last Admin: 05/04/17 08:22 Dose: Not Given Prednisone (Prednisone) 40 mg PO WITHBREAKFAST [facility] Last Admin: 05/04/17 09:27 Dose: 40 mg Pregabalin (Lyrica) 150 mg PO BID [facility] Last Admin: 05/04/17 08:21 Dose: 150 mg Quetiapine Fumarate (Seroquel) 25 mg PO BEDTIME [facility] Last Admin: 05/03/17 20:01 Dose: 25 mg Sodium Chloride (Saline Flush) 10 ml FLUSH ASDIRECTED PRN PRN Reason: Keep Vein Open Last Admin: 05/03/17 10:18 Dose: 10 ml Valproic Acid (Depakene) 500 mg PO BID [facility] Last Admin: 05/04/17 08:22 Dose: Not Given Vitamin B Complex/Vit C/Vit E/Zinc (Stress Formula With Zinc) 1 tab PO DAILY [facility] Last Admin: 05/04/17 08:24 Dose: Not Given Discontinued Medications Albuterol/Ipratropium (Duoneb 3.0-0.5 Mg/3 Ml) 3 ml NEB ONETIME ONE Stop: 05/02/17 21:21 Last Admin: 05/02/17 22:14 Dose: 3 ml Cephalexin (Keflex) 500 mg PO QID [facility] Stop: 05/05/17 20:00 Last Admin: 05/03/17 08:18 Dose: 500 mg Fentanyl (Duragesic) 50 mcg TRDERM Q72H [facility] Last Admin: 05/03/17 08:21 Dose: Not Given Gabapentin (Neurontin) 800 mg PO TID [facility] Last Admin: 05/03/17 08:20 Dose: 600 mg Sodium Chloride (Normal Saline) 1,000 mls @ 999 mls/hr IV ONETIME ONE Stop: 05/02/17 22:20 Last Admin: 05/02/17 22:15 Dose: 999 mls/hr Lactated Ringer's (Ringers, Lactated) 1,000 mls @ 75 mls/hr IV ASDIRECTED [facility] Last Admin: 05/03/17 02:31 Dose: 75 mls/hr Iopamidol (Isovue-300 (61%)) 100 ml IVPUSH ONETIME ONE Stop: 05/02/17 23:17 Last Admin: 05/02/17 23:44 Dose: 100 ml Methylprednisolone Sodium Succinate (Solu-Medrol) 125 mg IVPUSH ONETIME ONE Stop: 05/02/17 21:22 Last Admin: 05/02/17 22:17 Dose: 125 mg Methylprednisolone Sodium Succinate (Solu-Medrol) 40 mg IVPUSH Q12H [facility] Last Admin: 05/03/17 02:18 Dose: Not Given Methylprednisolone Sodium Succinate (Solu-Medrol) 40 mg IVPUSH Q12H [facility] Last Admin: 05/03/17 23:21 Dose: 40 mg - Exam General: Reports: Alert, Oriented, Cooperative, No Acute Distress HEENT: Reports: Mucous Membr. Moist/[place] Neck: Reports: Supple, Trachea Midline, No Thyromegaly. Denies: Lymphadenopathy Lungs: Reports: Normal Respiratory Effort, Wheezing (diffusely) Cardiovascular: Reports: Regular Rate, Regular Rhythm, No Murmurs GI/Abdominal Exam: Normal Bowel Sounds, Soft, Non-Tender, No Organomegaly, No Distention, No Mass Extremities: Normal Inspection, Non-Tender, No Pedal Edema Skin: Reports: Warm, Dry, Intact *Q Meaningful Use (DIS) - VTE *Q VTE Criteria *Q: - Stroke *Q Stroke Criteria *Q: - AMI *Q AMI Criteria *Q:
[2017-05-04] MEDS ORDERED: FLU Vacc QS 2017-18 (36mos UP)/PF 60 MCG/0.5 ML Syringe IM ONE (12:48)
[2017-05-04] MEDS ORDERED: predniSONE 20 MG Tab ONE (13:38)
[2017-05-04] MEDS ORDERED: Amoxicillin/Clavulanate K 875-125 MG Tab ONE (13:39)
[2017-05-04 14:29] VITALS: BP 141/98
== END 2017-05-04 16:45 | disposition home health service (06) | DRG 177 ==
LOC: VM.ED 21:09 → VM.MS 22:50
PROVIDERS: ADMIT Nurse Practitioner Family; ATTEND Internal Medicine
PROC: 3E0234Z Introduction of Serum, Toxoid and Vaccine into Muscle, Percutaneous Approach (ICD-10-PCS; principal; 2017-05-04)
DX: J18.9 Pneumonia, unspecified organism (principal); R09.02 Hypoxemia; I25.10 Atherosclerotic heart disease of native coronary artery without angina pectoris; J69.0 Pneumonitis due to inhalation of food and vomit; J44.9 Chronic obstructive pulmonary disease, unspecified; J96.01 Acute respiratory failure with hypoxia; L89.304 Pressure ulcer of unspecified buttock, stage 4; N39.498 Other specified urinary incontinence; M19.90 Unspecified osteoarthritis, unspecified site; F33.2 Major depressive disorder, recurrent severe without psychotic features; G82.20 Paraplegia, unspecified; F17.210 Nicotine dependence, cigarettes, uncomplicated; R53.1 Weakness; K21.9 Gastro-esophageal reflux disease without esophagitis; G89.4 Chronic pain syndrome; G62.9 Polyneuropathy, unspecified; J43.9 Emphysema, unspecified; I10 Essential (primary) hypertension; N31.9 Neuromuscular dysfunction of bladder, unspecified; Z93.50 Unspecified cystostomy status; G40.909 Epilepsy, unspecified, not intractable, without status epilepticus; F41.9 Anxiety disorder, unspecified; F32.9 Major depressive disorder, single episode, unspecified; S24.102S Unspecified injury at T2-T6 level of thoracic spinal cord, sequela; V89.2XXS Person injured in unspecified motor-vehicle accident, traffic, sequela; Z87.891 Personal history of nicotine dependence; Z88.2 Allergy status to sulfonamides; Z79.899 Other long term (current) drug therapy; Z23 Encounter for immunization
CPT/HCPCS: 36415; 71045; 80048; 83605; 85025; 86140; 87040 ×2; 87804 ×2; 94640; 96361; 96374; 99285; J2930; J7030; 71275; 85379; 90686; 94760; 99284-GF; A9270-GY; G0008; J1650; J2920; J7050; J7120; Q9967

== ENCOUNTER 2017-12-09 21:12 | Inpatient (IN) | payer MEDICARE, MEDICAID ==
[2017-12-09] MEDS ORDERED: Sodium Chloride 0.9% 10 ML Syringe FLUSH PRN (21:34)
[2017-12-09] MEDS ORDERED: cefTRIAXone 2 GM Vial IVPUSH ONE (22:52)
[2017-12-09 23:02] LABS: CHLORIDE,CL 98 mmol/L (98-107); SODIUM,NA 132 mmol/L (136-145)
[2017-12-09 23:03] LABS: ANION GAP 12.1 mmol/L (10-20)
[2017-12-09] MEDS ORDERED: Acetaminophen 500 MG Tab PO ONE (23:19)
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
[2017-12-10] MEDS ORDERED: Simethicone 80 MG Tab.Chew PO PRN (00:01)
[2017-12-10] MEDS ORDERED: Acetaminophen 325 MG Tab PO PRN (00:01)
[2017-12-10] MEDS ORDERED: Docusate Sodium 100 MG Cap PO PRN (00:01)
[2017-12-10] MEDS ORDERED: traZODone 50 MG Tab PO PRN (00:01)
[2017-12-10] MEDS ORDERED: Sodium Chloride 0.9% 1,000 ML IV SCH (00:15)
[2017-12-10] MEDS ORDERED: Calcium Carbonate/Vitamin D3 1250 MG-200 Unit Tab PO ONE (00:30)
[2017-12-10] MEDS: Nicotine 21 MG/24 Hr Patch TRDERM SCH ×2 (01:05→07:59)
[2017-12-10] MEDS: methylPREDNISolone Sodium Succinate 40 MG/1 ML SDV IVPUSH SCH ×4 (01:14→22:40)
[2017-12-10] MEDS: Albuterol/Ipratropium 3.0-0.5 MG/3 ML Neb Soln NEB SCH ×5 (01:18→19:53)
[2017-12-10] MEDS: Pregabalin 50 MG Cap PO SCH ×4 (01:20→19:51)
[2017-12-10] MEDS: QUEtiapine 25 MG Tab PO SCH ×2 (01:21→19:54)
[2017-12-10] MEDS: Gabapentin 300 MG Cap PO SCH ×4 (01:24→19:51)
[2017-12-10] MEDS: Venlafaxine 37.5 MG Tab PO SCH ×3 (01:25→19:53)
[2017-12-10] MEDS: Calcium Carbonate/Vitamin D3 1250 MG-200 Unit Tab PO SCH ×2 (07:58→08:09)
[2017-12-10] MEDS: Multivitamins with Iron/Calcium/Folic Acid/Minerals Tab PO SCH ×2 (07:59→08:09)
[2017-12-10] MEDS ORDERED: Non-Formulary Medication 1 Each (Umeclidinium Bromide [Incruse Ellipta*] 1 PUFF) PO SCH (08:00)
[2017-12-10] MEDS ORDERED: Omeprazole 20 MG Cap.CR PO SCH (08:00)
[2017-12-10] MEDS ORDERED: BACLOFEN IT SCH (08:00)
[2017-12-10] MEDS ORDERED: LACOSAMIDE 100 MG PO SCH (08:00)
[2017-12-10] MEDS ORDERED: Gabapentin 300 MG Cap PO SCH (08:00)
[2017-12-10] MEDS ORDERED: Venlafaxine 37.5 MG Tab PO SCH (08:00)
[2017-12-10] MEDS ORDERED: Albuterol 0.083% 2.5 MG/3 ML Neb Soln NEB PRN (09:02)
[2017-12-10] MEDS: Nicotine 14 MG/24 Hr Patch TRDERM SCH (10:57)
[2017-12-10] MEDS: cefTRIAXone 1 GM Vial IVPUSH SCH (10:57)
[2017-12-10] MEDS ORDERED: QUEtiapine 25 MG Tab PO SCH (20:00)
[2017-12-10] MEDS ORDERED: Nortriptyline 10 MG Cap PO SCH (20:00)
[2017-12-10] MEDS ORDERED: Enoxaparin 40 MG/0.4 ML Syringe SUBCUT SCH (21:30)
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
[2017-12-11 07:03] LABS: CHLORIDE,CL 103 mmol/L (98-107); SODIUM,NA 137 mmol/L (136-145)
[2017-12-11 07:04] LABS: ANION GAP 13.2 mmol/L (10-20)
[2017-12-11] MEDS: Albuterol/Ipratropium 3.0-0.5 MG/3 ML Neb Soln NEB SCH ×3 (07:07→15:31)
[2017-12-11] MEDS: Nicotine 14 MG/24 Hr Patch TRDERM SCH (08:50)
[2017-12-11] MEDS: Nicotine 21 MG/24 Hr Patch TRDERM SCH (08:50)
[2017-12-11] MEDS: methylPREDNISolone Sodium Succinate 40 MG/1 ML SDV IVPUSH SCH (08:50)
[2017-12-11] MEDS: cefTRIAXone 1 GM Vial IVPUSH SCH (08:50)
[2017-12-11] MEDS: Gabapentin 300 MG Cap PO SCH ×2 (08:51→12:00)
[2017-12-11] MEDS: Venlafaxine 37.5 MG Tab PO SCH (08:51)
[2017-12-11] MEDS: Pregabalin 50 MG Cap PO SCH ×2 (08:51→11:59)
[2017-12-11] MEDS: Calcium Carbonate/Vitamin D3 1250 MG-200 Unit Tab PO SCH (08:57)
[2017-12-11] MEDS: Multivitamins with Iron/Calcium/Folic Acid/Minerals Tab PO SCH (08:57)
--- NOTE | 2017-12-11 11:22 | PCM.DCSUM1 ---
Discharge Summary - Hospital Course Free Text/Narrative:: She was admitted through the ER for some increasing cough and dyspnea. Had similar symptoms with some viral prodrome for about 4-5 days prior. CBC chest x -ray vital signs were all normal. Starting on some antibiotics nebulizer and steroid. Pretty much back to baseline by the next day. No complaints currently. Still wheezing fair amt by exam otherwise vitals and exam are good. Primary saw her and adjusted some of her meds per below. They were unable to change the suprapubic in the hospital so she'll follow-up with primary for recheck cough, mood/chronic pain, COPD etc. next week. Recheck in the clinic next week we will change your catheter then Doxycycline 100 mg twice daily for 4 days on discharge for the lungs Prednisone 20 mg daily for 5 days Duonebs on discharge instead of albuterol only Ok to stop the incruse Diagnosis: Stroke: No - Discharge Data Discharge Date: 12/11/17 Discharge Disposition: Home, Self-Care 01 Condition: Stable - Patient Instructions Diet: Usual Diet as Tolerated Activity: As Tolerated Driving: Do Not Drive Notify Provider of: Fever, Increased Pain, Swelling and Redness, Drainage, Nausea and/or Vomiting - Discharge Plan *PRESCRIPTION DRUG MONITORING PROGRAM REVIEWED*: Not Applicable *COPY OF PRESCRIPTION DRUG MONITORING REPORT IN PATIENT SUNDEEP: Not Applicable Prescriptions/Med Rec: Albuterol/Ipratropium [DuoNeb 3.0-0.5 MG/3 ML] 3 ml NEB QIDRT #120 neb Doxycycline [Vibramycin] 100 mg PO BID #8 cap Nicotine [Habitrol] 21 mg TRDERM DAILY #30 patch Nortriptyline 10 mg PO BEDTIME #30 cap predniSONE [Prednisone] 20 mg PO DAILY #5 tablet Venlafaxine [Effexor] 75 mg PO BID #1 tablet Home Medications: Home Meds Lacosamide [Vimpat] 100 mg PO BID 07/20/13 [History] Gabapentin [Neurontin] 900 mg PO TID 01/28/16 [History] Simethicone 80 mg PO Q4H PRN 02/27/16 [History] Baclofen [Gablofen] 1,000.2 mcg IT DAILY 06/05/16 [History] Naloxone HCl [Narcan] 1 spray NS ASDIRECTED PRN 06/05/16 [History] Albuterol Sulfate [Proair Hfa] 2 puff INH Q4HR PRN 12/20/16 [History] fentaNYL [Fentanyl] 50 mcg TD Q72H 12/20/16 [History] Multivitamin [Multi-Vitamin Daily] 1 tab PO DAILY 05/03/17 [History] Pregabalin [Lyrica] 150 mg PO TID 05/03/17 [History] QUEtiapine [SEROquel] 25 mg PO BEDTIME PRN 05/03/17 [History] Calcium Carbonate/Vitamin D3 [Calcium 600 + Vit D 400 Softgl] 1 tab PO BIDAC [History] Nystatin [Nyamyc] 1 applic BID PRN 12/09/17 [History] Albuterol/Ipratropium [DuoNeb 3.0-0.5 MG/3 ML] 3 ml NEB QIDRT #120 neb 12/10/17 [Rx] Doxycycline [Vibramycin] 100 mg PO BID #8 cap 12/10/17 [Rx] Nicotine [Habitrol] 21 mg TRDERM DAILY #30 patch 12/10/17 [Rx] Nortriptyline 10 mg PO BEDTIME #30 cap 12/10/17 [Rx] Venlafaxine [Effexor] 75 mg PO BID #1 tablet 12/10/17 [Rx] predniSONE [Prednisone] 20 mg PO DAILY #5 tablet 12/10/17 [Rx] Forms: ED Department Discharge Referrals: Malina Samayoa DO [Primary Care Provider] - 12/17/17 3:00 pm (You have a follow up appt. with Dana Samayoa on December 17, 2017 at 3PM---[facility]. You also will have a cath change at that time.) - Discharge Summary/Plan Comment DC Time >30 min.: No - Patient Data Vitals - Most Recent: Last Vital Signs Temp 37.0 C 12/11/17 11:17 Pulse 88 12/11/17 11:17 Resp 20 12/11/17 11:17 BP 102/61 12/11/17 11:17 Pulse Ox 98 12/11/17 11:17 Weight - Most Recent: 57.606 kg I&O - Last 24 hours: Intake & Output 12/10/17 12/11/17 12/11/17 22:59 06:59 14:59 Intake Total 300 1200 360 Output Total 1500 1600 Balance -1200 -400 360 Lab Results - Last 24 hrs: Laboratory Results - last 24 hr 12/11/17 12/11/17 Range/Units 06:37 06:37 WBC 9.4 (4.0-10.0) x10^3/uL RBC 5.05 (4.00-5.50) x10^6/uL Hgb 15.2 D (12.0-16.0) g/dL Hct 44.3 (33.0-47.0) % MCV 87.7 (78.0-93.0) fL MCH 30.1 (26.0-32.0) pg MCHC 34.3 (32.0-36.0) g/dL RDW Coeff of Krystle 14.3 (10.0-15.0) % Plt Count 322 (130-400) x10^3/uL Neut % (Auto) 83.3 H (50.0-80.0) % Lymph % (Auto) 8.1 L (25.0-50.0) % [place] % (Auto) 8.6 (2.0-11.0) % Eos % (Auto) 0.0 (0.0-4.0) % Baso % (Auto) 0.0 L (0.2-1.2) % Sodium 137 (136-145) mmol/L Potassium 4.2 (3.5-5.1) mmol/L Chloride 103 (98-107) mmol/L Carbon Dioxide 25 (21-32) mmol/L Anion Gap 13.2 (10-20) mmol/L BUN 8 (7-18) mg/dL Creatinine 0.6 (0.55-1.02) mg/dL Est Cr Clr Drug Dosing 104.40 mL/min Estimated GFR (MDRD) > 60 Glucose 117 H (74-106) mg/dL Calcium 9.2 (8.5-10.1) mg/dL NESS Results - Last 24 hrs: Microbiology 12/10/17 00:20 MRSA Surveillance Culture - Final Nasal, Right NO MRSA ISOLATED 12/09/17 22:43 Aerobic Blood Culture - Preliminary Blood - Venous - Lab Draw NO GROWTH AFTER 1 DAY Anaerobic Blood Culture - Final 12/09/17 22:12 Aerobic Blood Culture - Preliminary Blood - Venous NO GROWTH AFTER 1 DAY Anaerobic Blood Culture - Final Med Orders - Current: Current Medications Acetaminophen (Tylenol) 325 mg PO TID PRN PRN Reason: Pain Albuterol (Proventil Neb Soln) 2.5 mg NEB Q4HRRT PRN PRN Reason: Cough Albuterol/Ipratropium (Duoneb 3.0-0.5 Mg/3 Ml) 3 ml NEB QIDRT [facility] Last Admin: 12/11/17 10:57 Dose: 3 ml Calcium Carbonate (Calcium Carbonate/Vitamin D 1250 Mg-200 Unit) 2 tab PO DAILY [facility] Last Admin: 12/11/17 08:57 Dose: Not Given Ceftriaxone Sodium (Rocephin) 1 gm IVPUSH DAILY [facility] Last Admin: 12/11/17 08:50 Dose: 1 gm Enoxaparin Sodium (Lovenox) 40 mg SUBCUT Q24H [facility] Last Admin: 12/10/17 22:42 Dose: 40 mg Fentanyl (Duragesic) 50 mcg TRDERM Q72H [facility] Gabapentin (Neurontin) 900 mg PO TID [facility] Last Admin: 12/11/17 08:51 Dose: 900 mg Methylprednisolone Sodium Succinate (Solu-Medrol) 40 mg IVPUSH Q12H [facility] Last Admin: 12/11/17 08:50 Dose: 40 mg Multivitamins/Minerals (Thera M Plus) 1 tab PO DAILY [facility] Last Admin: 12/11/17 08:57 Dose: Not Given Nicotine (Habitrol) 21 mg TRDERM DAILY [facility] Last Admin: 12/11/17 08:50 Dose: 21 mg Nicotine (Habitrol) 14 mg TRDERM DAILY [facility] Last Admin: 12/11/17 08:50 Dose: 14 mg Baclofen [Gablofen] 1,000.2mcg Intrathecal Pump 1,000.2 mcg IT ASDIRECTED [facility] Non-Formulary Medication (Lacosamide [Vimpat]) 100 mg PO BID [facility] Nortriptyline HCl (Nortriptyline) 10 mg PO BEDTIME [facility] Last Admin: 12/10/17 19:51 Dose: 10 mg Pregabalin (Lyrica) 150 mg PO TID [facility] Last Admin: 12/11/17 08:51 Dose: 150 mg Quetiapine Fumarate (Seroquel) 25 mg PO BEDTIME [facility] Last Admin: 12/10/17 19:54 Dose: Not Given Simethicone (Simethicone) 80 mg PO Q4H PRN PRN Reason: Gas Sodium Chloride (Saline Flush) 10 ml FLUSH ASDIRECTED PRN PRN Reason: Keep Vein Open Venlafaxine HCl (Effexor) 75 mg PO BID [facility] Last Admin: 12/11/17 08:51 Dose: 75 mg Discontinued Medications Acetaminophen (Tylenol Extra Strength) 1,000 mg PO ONETIME ONE Stop: 12/09/17 23:20 Last Admin: 12/09/17 23:25 Dose: 1,000 mg Calcium Carbonate (Calcium Carbonate/Vitamin D 1250 Mg-200 Unit) 1 tab PO ONETIME ONE Stop: 12/10/17 00:31 Last Admin: 12/10/17 01:20 Dose: Not Given Ceftriaxone Sodium (Rocephin) 2 gm IVPUSH STAT ONE Stop: 12/09/17 22:53 Last Admin: 12/09/17 23:06 Dose: 2 gm Docusate Sodium (Colace) 100 mg PO BID PRN PRN Reason: Constipation Stop: 12/10/17 00:51 Gabapentin (Neurontin) 900 mg PO TID [facility] Sodium Chloride (Normal Saline) 1,000 mls @ 125 mls/hr IV ASDIRECTED [facility] Last Admin: 12/10/17 01:06 Dose: 125 mls/hr Methylprednisolone Sodium Succinate (Solu-Medrol) 40 mg IVPUSH Q8H [facility] Last Admin: 12/10/17 16:15 Dose: 40 mg Non-Formulary Medication (Umeclidinium [place] [Incruse Ellipta*]) 1 puff PO DAILY [facility] Last Admin: 12/10/17 09:45 Dose: Not Given Omeprazole (Omeprazole) 20 mg PO DAILY [facility] Quetiapine Fumarate (Seroquel) 25 mg PO BEDTIME [facility] Trazodone HCl (Trazodone) 50 mg PO BEDTIME PRN PRN Reason: Arrhythmia Venlafaxine HCl (Effexor) 75 mg PO TID [facility] Venlafaxine HCl (Effexor) 75 mg PO TID [facility] Last Admin: 12/10/17 07:59 Dose: 75 mg
[2017-12-11 14:03] VITALS: BP 120/89
[2017-12-12] MEDS ORDERED: fentaNYL 50 MCG/HR Transdermal Patch TRDERM SCH (09:00)
== END 2017-12-11 17:50 | disposition home or self-care (01) | DRG 191 ==
LOC: VM.ED 21:12 → VM.MS 23:20 → UNDOADMIN 23:52 → VM.MS 23:52
PROVIDERS: ADMIT Family Medicine; ATTEND Family Medicine
DX: J18.9 Pneumonia, unspecified organism (principal); J44.0 Chronic obstructive pulmonary disease with (acute) lower respiratory infection; J44.1 Chronic obstructive pulmonary disease with (acute) exacerbation; I25.10 Atherosclerotic heart disease of native coronary artery without angina pectoris; I10 Essential (primary) hypertension; H54.7 Unspecified visual loss; K21.9 Gastro-esophageal reflux disease without esophagitis; K59.09 Other constipation; I45.10 Unspecified right bundle-branch block; G82.20 Paraplegia, unspecified; N39.498 Other specified urinary incontinence; E87.1 Hypo-osmolality and hyponatremia; F17.210 Nicotine dependence, cigarettes, uncomplicated; Z87.01 Personal history of pneumonia (recurrent); L89.309 Pressure ulcer of unspecified buttock, unspecified stage; F32.9 Major depressive disorder, single episode, unspecified; E55.9 Vitamin D deficiency, unspecified; F41.1 Generalized anxiety disorder; N31.9 Neuromuscular dysfunction of bladder, unspecified; G89.29 Other chronic pain; Z88.2 Allergy status to sulfonamides; Z79.899 Other long term (current) drug therapy; T14.8XXS Other injury of unspecified body region, sequela; V49.9XXS Car occupant (driver) (passenger) injured in unspecified traffic accident, sequela
CPT/HCPCS: 36415; 71045; 80053; 83605; 83735; 83880; 84100; 84443; 84484; 85025; 85610; 86140; 87040 ×2; 93005; 96374; 99285; A9270; J0696; 80048; 94640; 94667; 94668; 94760; J1650; J2920; J7030; J7620-GY

== ENCOUNTER 2018-05-12 18:21 | Emergency (ER) | payer MEDICARE, MEDICAID ==
[2018-05-12] MEDS ORDERED: Sodium Chloride 0.9% 10 ML Syringe FLUSH PRN (18:33)
[2018-05-12] MEDS ORDERED: Albuterol/Ipratropium 3.0-0.5 MG/3 ML Neb Soln NEB ONE (18:38)
[2018-05-12] MEDS ORDERED: methylPREDNISolone Sodium Succinate 125 MG/2 ML SDV IV ONE (18:38)
[2018-05-12] MEDS ORDERED: cefTRIAXone 2 GM Vial IVPUSH ONE (18:50)
[2018-05-12] MEDS ORDERED: Azithromycin 250 MG Tab PO ONE (18:51)
--- NOTE | 2018-05-12 19:22 | CR ---
[id number] RAD/RAD Chest Portable EXAM: PORTABLE CHEST RADIOGRAPH. INDICATION: RESPIRATORY DISTRESS COMPARISON: CORRELATION IS MADE WITH THE EXAM OF DECEMBER 09, 2017. FINDINGS: Interstitial pulmonary parenchymal fibrosis is seen. The lungs are hyperaerated. Correlation also is made with the CAT scan chest dated May 02, 2017. The CAT scan chest dated demonstrate evidence suggesting pulmonary artery hypertension. IMPRESSION: PULMONARY PARENCHYMAL FIBROSIS. AIR TRAPPING. SCARRING AT LUNG BASES. NO PNEUMONIA OR EDEMA. Ajith Almanza MD 05/12/18 [id number] Thank you for allowing us to participate in the care of your patient.
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
[2018-05-12 20:02] LABS: CHLORIDE,CL 101 mmol/L (98-107); SODIUM,NA 135 mmol/L (136-145)
[2018-05-12 20:06] LABS: ANION GAP 12.7 mmol/L (10-20)
[2018-05-13 02:14] VITALS: BP 98/63
== END 2018-05-12 22:00 | disposition short-term general hospital (02) ==
LOC: VM.ED 18:21
DX: I21.4 Non-ST elevation (NSTEMI) myocardial infarction (principal); J96.91 Respiratory failure, unspecified with hypoxia; J44.1 Chronic obstructive pulmonary disease with (acute) exacerbation; I10 Essential (primary) hypertension; Z88.2 Allergy status to sulfonamides; Z79.899 Other long term (current) drug therapy
CPT/HCPCS: 36415; 71045; 80053; 82803; 83605; 83735; 83880; 84100; 84443; 84484; 85025; 86140; 87804; 93005; 94640; 94760; 96374; 96375; 99284; 99285; A9270; J0696; J2930; J7620-GY

== ENCOUNTER 2018-12-02 09:16 | Inpatient (IN) | payer MEDICAID, MEDICARE ==
[2018-12-02] MEDS ORDERED: traZODone 50 MG Tab PO PRN (17:15)
[2018-12-02] MEDS ORDERED: Docusate Sodium 100 MG Cap PO PRN (17:15)
[2018-12-02] MEDS ORDERED: NALOXONE HCL NS PRN (17:15)
[2018-12-02] MEDS ORDERED: Albuterol 0.083% 2.5 MG/3 ML Neb Soln NEB PRN (17:15)
[2018-12-02] MEDS ORDERED: Simethicone 80 MG Tab.Chew PO PRN (17:15)
[2018-12-02] MEDS ORDERED: ACETIC ACID 2% PRN (17:15)
[2018-12-02] MEDS ORDERED: Gabapentin 300 MG Cap PO SCH (20:00)
[2018-12-03] MEDS ORDERED: BACLOFEN IT SCH (08:00)
[2018-12-03] MEDS ORDERED: Nicotine 21 MG/24 Hr Patch TRDERM SCH (08:00)
[2018-12-03] MEDS ORDERED: DULoxetine 30 MG Cap PO SCH (08:00)
[2018-12-03] MEDS ORDERED: TRAZODONE 50 MG PO PRN (10:25)
[2018-12-03] MEDS ORDERED: SIMETHICONE 125 MG PO PRN (10:41)
[2018-12-03] MEDS ORDERED: Calcium Carbonate/Vitamin D3 1250 MG-200 Unit Tab PO SCH (10:45)
[2018-12-03] MEDS: Albuterol 0.083% 2.5 MG/3 ML Neb Soln NEB SCH ×4 (11:07→23:04)
[2018-12-03] MEDS: PREGABALIN 150 MG PO SCH ×3 (11:44→19:58)
[2018-12-03] MEDS: LACOSAMIDE 100 MG PO SCH ×3 (11:44→19:58)
[2018-12-03] MEDS: IPRATROPIUM NASBOTH SCH ×2 (11:44→14:35)
[2018-12-03] MEDS: DEXLANSOPRAZOLE 60 MG PO SCH (13:15)
[2018-12-03] MEDS: Gabapentin 600mg (own supply) PO SCH ×2 (13:15→19:57)
[2018-12-03] MEDS: GABAPENTIN 300 MG PO SCH ×2 (13:16→19:57)
[2018-12-03] MEDS: NICOTINE 21 MG TOP SCH (13:16)
[2018-12-03] MEDS: DULOXETINE 30 MG PO SCH (13:16)
[2018-12-03] MEDS: FENTANYL 50 MCG TD SCH (13:17)
[2018-12-03] MEDS: Multivitamins with Iron/Calcium/Folic Acid/Minerals Tab PO SCH (14:35)
[2018-12-03] MEDS: Calcium Carbonate/Vitamin D3 1250 MG-200 Unit Tab PO SCH (14:36)
[2018-12-04] MEDS: Albuterol 0.083% 2.5 MG/3 ML Neb Soln NEB SCH ×4 (04:09→15:06)
[2018-12-04] MEDS: DEXLANSOPRAZOLE 60 MG PO SCH ×2 (06:27→08:00)
[2018-12-04] MEDS: NICOTINE 21 MG TOP SCH (07:57)
[2018-12-04] MEDS: Calcium Carbonate/Vitamin D3 1250 MG-200 Unit Tab PO SCH (07:58)
[2018-12-04] MEDS: PREGABALIN 150 MG PO SCH ×2 (07:58→19:30)
[2018-12-04] MEDS: Multivitamins with Iron/Calcium/Folic Acid/Minerals Tab PO SCH (07:58)
[2018-12-04] MEDS: Acetaminophen 325 MG Tab PO PRN (07:58)
[2018-12-04] MEDS: LACOSAMIDE 100 MG PO SCH ×2 (07:59→19:30)
[2018-12-04] MEDS: GABAPENTIN 300 MG PO SCH ×2 (07:59→19:29)
[2018-12-04] MEDS: Gabapentin 600mg (own supply) PO SCH ×2 (07:59→19:29)
[2018-12-04] MEDS: DULOXETINE 30 MG PO SCH (08:00)
[2018-12-04] MEDS: Albuterol/Ipratropium 3.0-0.5 MG/3 ML Neb Soln NEB SCH ×2 (19:28→23:23)
[2018-12-04] MEDS ORDERED: FENTANYL 50 MCG TD SCH (21:15)
[2018-12-05] MEDS: Albuterol/Ipratropium 3.0-0.5 MG/3 ML Neb Soln NEB SCH ×5 (05:27→18:24)
[2018-12-05] MEDS: DEXLANSOPRAZOLE 60 MG PO SCH (07:18)
[2018-12-05] MEDS: DULOXETINE 30 MG PO SCH (07:19)
[2018-12-05] MEDS: Calcium Carbonate/Vitamin D3 1250 MG-200 Unit Tab PO SCH (07:19)
[2018-12-05] MEDS: LACOSAMIDE 100 MG PO SCH ×2 (07:20→20:06)
[2018-12-05] MEDS: GABAPENTIN 300 MG PO SCH ×2 (07:20→20:05)
[2018-12-05] MEDS: Gabapentin 600mg (own supply) PO SCH ×2 (07:20→20:06)
[2018-12-05] MEDS: Multivitamins with Iron/Calcium/Folic Acid/Minerals Tab PO SCH (07:21)
[2018-12-05] MEDS: PREGABALIN 150 MG PO SCH ×2 (07:21→20:07)
[2018-12-05] MEDS: NICOTINE 21 MG TOP SCH (07:22)
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
[2018-12-05] MEDS ORDERED: guaiFENesin 600 MG Tab.ER PO SCH (20:00)
[2018-12-05] MEDS: guaiFENesin 600 MG Tab.ER PO SCH (20:07)
[2018-12-05] MEDS: Acetaminophen 325 MG Tab PO PRN (20:09)
[2018-12-06] MEDS: Albuterol/Ipratropium 3.0-0.5 MG/3 ML Neb Soln NEB SCH ×7 (01:26→22:25)
[2018-12-06] MEDS: Acetaminophen 325 MG Tab PO PRN ×4 (02:34→20:50)
[2018-12-06] MEDS: guaiFENesin 600 MG Tab.ER PO SCH ×3 (07:28→21:05)
[2018-12-06] MEDS: PREGABALIN 150 MG PO SCH ×2 (07:29→21:01)
[2018-12-06] MEDS: LACOSAMIDE 100 MG PO SCH ×2 (07:29→21:01)
[2018-12-06] MEDS: GABAPENTIN 300 MG PO SCH ×2 (07:29→21:00)
[2018-12-06] MEDS: Gabapentin 600mg (own supply) PO SCH ×2 (07:30→21:00)
[2018-12-06] MEDS: DULOXETINE 30 MG PO SCH (07:32)
[2018-12-06] MEDS: DEXLANSOPRAZOLE 60 MG PO SCH (07:32)
[2018-12-06] MEDS: NICOTINE 21 MG TOP SCH (07:35)
[2018-12-06] MEDS: Multivitamins with Iron/Calcium/Folic Acid/Minerals Tab PO SCH (08:53)
[2018-12-06] MEDS: Calcium Carbonate/Vitamin D3 1250 MG-200 Unit Tab PO SCH (08:53)
[2018-12-07] MEDS: Albuterol 0.083% 2.5 MG/3 ML Neb Soln NEB SCH (02:56)
[2018-12-07] MEDS: Acetaminophen 325 MG Tab PO PRN ×4 (02:57→21:48)
[2018-12-07] MEDS: Albuterol/Ipratropium 3.0-0.5 MG/3 ML Neb Soln NEB SCH ×6 (03:00→23:52)
[2018-12-07] MEDS: DULOXETINE 30 MG PO SCH (08:48)
[2018-12-07] MEDS: guaiFENesin 600 MG Tab.ER PO SCH ×2 (08:48→22:44)
[2018-12-07] MEDS: LACOSAMIDE 100 MG PO SCH ×2 (08:49→21:47)
[2018-12-07] MEDS: Gabapentin 600mg (own supply) PO SCH ×2 (08:49→21:46)
[2018-12-07] MEDS: DEXLANSOPRAZOLE 60 MG PO SCH (08:49)
[2018-12-07] MEDS: PREGABALIN 150 MG PO SCH ×2 (08:49→21:47)
[2018-12-07] MEDS: Multivitamins with Iron/Calcium/Folic Acid/Minerals Tab PO SCH (08:50)
[2018-12-07] MEDS: GABAPENTIN 300 MG PO SCH ×2 (08:50→21:46)
[2018-12-07] MEDS: Calcium Carbonate/Vitamin D3 1250 MG-200 Unit Tab PO SCH (08:51)
[2018-12-07] MEDS: NICOTINE 21 MG TOP SCH (08:51)
[2018-12-07] MEDS: FENTANYL 50 MCG TD SCH ×2 (21:52→21:57)
[2018-12-07] MEDS: [UNRECOGNIZED DRUG - REMARK] TRDERM SCH (21:56)
[2018-12-07] MEDS: Miconazole 2% Top Powder 45 GM Container TOP PRN (21:57)
[2018-12-08] MEDS: Albuterol/Ipratropium 3.0-0.5 MG/3 ML Neb Soln NEB SCH ×5 (02:35→21:06)
[2018-12-08] MEDS: DEXLANSOPRAZOLE 60 MG PO SCH (05:58)
[2018-12-08] MEDS: Acetaminophen 325 MG Tab PO PRN ×2 (06:06→13:38)
[2018-12-08] MEDS: guaiFENesin 600 MG Tab.ER PO SCH ×2 (07:47→21:08)
[2018-12-08] MEDS: Calcium Carbonate/Vitamin D3 1250 MG-200 Unit Tab PO SCH (07:47)
[2018-12-08] MEDS: DULOXETINE 30 MG PO SCH (07:47)
[2018-12-08] MEDS: GABAPENTIN 300 MG PO SCH ×2 (07:48→21:07)
[2018-12-08] MEDS: Gabapentin 600mg (own supply) PO SCH ×2 (07:48→21:06)
[2018-12-08] MEDS: LACOSAMIDE 100 MG PO SCH ×2 (07:48→21:07)
[2018-12-08] MEDS: PREGABALIN 150 MG PO SCH ×2 (07:48→21:07)
[2018-12-08] MEDS: Multivitamins with Iron/Calcium/Folic Acid/Minerals Tab PO SCH (07:48)
[2018-12-08] MEDS: NICOTINE 21 MG TOP SCH (07:48)
[2018-12-09] MEDS: Albuterol/Ipratropium 3.0-0.5 MG/3 ML Neb Soln NEB SCH ×7 (02:46→23:49)
[2018-12-09] MEDS: Acetaminophen 325 MG Tab PO PRN (03:41)
[2018-12-09] MEDS: DEXLANSOPRAZOLE 60 MG PO SCH (06:00)
[2018-12-09] MEDS: Multivitamins with Iron/Calcium/Folic Acid/Minerals Tab PO SCH (08:00)
[2018-12-09] MEDS: Calcium Carbonate/Vitamin D3 1250 MG-200 Unit Tab PO SCH (08:00)
[2018-12-09] MEDS: guaiFENesin 600 MG Tab.ER PO SCH ×2 (08:00→21:39)
[2018-12-09] MEDS: Gabapentin 600mg (own supply) PO SCH ×2 (08:01→20:56)
[2018-12-09] MEDS: GABAPENTIN 300 MG PO SCH ×2 (08:01→20:55)
[2018-12-09] MEDS: PREGABALIN 150 MG PO SCH ×2 (08:02→20:57)
[2018-12-09] MEDS: LACOSAMIDE 100 MG PO SCH ×2 (08:02→20:56)
[2018-12-09] MEDS: DULOXETINE 30 MG PO SCH (08:03)
[2018-12-09] MEDS: NICOTINE 21 MG TOP SCH (09:28)
[2018-12-10] MEDS: Acetaminophen 325 MG Tab PO PRN ×3 (03:46→22:14)
[2018-12-10] MEDS: Albuterol/Ipratropium 3.0-0.5 MG/3 ML Neb Soln NEB SCH ×6 (03:46→22:14)
[2018-12-10] MEDS: DEXLANSOPRAZOLE 60 MG PO SCH (09:14)
[2018-12-10] MEDS: DULOXETINE 30 MG PO SCH (09:15)
[2018-12-10] MEDS: Calcium Carbonate/Vitamin D3 1250 MG-200 Unit Tab PO SCH (09:16)
[2018-12-10] MEDS: guaiFENesin 600 MG Tab.ER PO SCH ×2 (09:16→20:53)
[2018-12-10] MEDS: Gabapentin 600mg (own supply) PO SCH ×2 (09:17→20:48)
[2018-12-10] MEDS: Multivitamins with Iron/Calcium/Folic Acid/Minerals Tab PO SCH (09:17)
[2018-12-10] MEDS: LACOSAMIDE 100 MG PO SCH ×2 (09:18→20:47)
[2018-12-10] MEDS: GABAPENTIN 300 MG PO SCH ×2 (09:18→20:49)
[2018-12-10] MEDS: PREGABALIN 150 MG PO SCH ×2 (09:19→20:48)
[2018-12-10] MEDS: NICOTINE 21 MG TOP SCH (09:20)
[2018-12-10] MEDS: Miconazole 2% Top Powder 45 GM Container TOP PRN (20:00)
[2018-12-10] MEDS: FENTANYL 50 MCG TD SCH (20:50)
[2018-12-10] MEDS: [UNRECOGNIZED DRUG - REMARK] TRDERM SCH (20:50)
[2018-12-11] MEDS: Albuterol/Ipratropium 3.0-0.5 MG/3 ML Neb Soln NEB SCH ×8 (03:36→23:05)
[2018-12-11] MEDS: DEXLANSOPRAZOLE 60 MG PO SCH (05:39)
[2018-12-11] MEDS: PREGABALIN 150 MG PO SCH ×3 (05:47→20:40)
[2018-12-11] MEDS: LACOSAMIDE 100 MG PO SCH ×3 (05:48→20:41)
[2018-12-11] MEDS: GABAPENTIN 300 MG PO SCH ×3 (05:48→20:41)
[2018-12-11] MEDS: Gabapentin 600mg (own supply) PO SCH ×3 (05:49→20:41)
[2018-12-11] MEDS: Acetaminophen 325 MG Tab PO PRN ×3 (05:49→20:40)
[2018-12-11] MEDS: DULOXETINE 30 MG PO SCH ×2 (05:54→07:26)
[2018-12-11] MEDS: Calcium Carbonate/Vitamin D3 1250 MG-200 Unit Tab PO SCH (07:26)
[2018-12-11] MEDS: guaiFENesin 600 MG Tab.ER PO SCH ×2 (07:28→21:09)
[2018-12-11] MEDS: Multivitamins with Iron/Calcium/Folic Acid/Minerals Tab PO SCH (07:29)
[2018-12-11] MEDS: NICOTINE 21 MG TOP SCH (07:59)
[2018-12-12] MEDS: Albuterol/Ipratropium 3.0-0.5 MG/3 ML Neb Soln NEB SCH ×6 (05:34→23:06)
[2018-12-12] MEDS: DEXLANSOPRAZOLE 60 MG PO SCH (06:06)
[2018-12-12] MEDS: Acetaminophen 325 MG Tab PO PRN ×3 (06:07→22:48)
[2018-12-12] MEDS: Calcium Carbonate/Vitamin D3 1250 MG-200 Unit Tab PO SCH (07:35)
[2018-12-12] MEDS: Multivitamins with Iron/Calcium/Folic Acid/Minerals Tab PO SCH (07:36)
[2018-12-12] MEDS: guaiFENesin 600 MG Tab.ER PO SCH ×2 (07:36→21:32)
[2018-12-12] MEDS: PREGABALIN 150 MG PO SCH ×2 (09:06→21:27)
[2018-12-12] MEDS: DULOXETINE 30 MG PO SCH (09:06)
[2018-12-12] MEDS: GABAPENTIN 300 MG PO SCH ×2 (09:06→21:26)
[2018-12-12] MEDS: Gabapentin 600mg (own supply) PO SCH ×2 (09:06→21:25)
[2018-12-12] MEDS: LACOSAMIDE 100 MG PO SCH ×2 (09:07→21:26)
[2018-12-12] MEDS: NICOTINE 21 MG TOP SCH (09:08)
[2018-12-13] MEDS: Albuterol/Ipratropium 3.0-0.5 MG/3 ML Neb Soln NEB SCH ×5 (05:15→18:38)
[2018-12-13] MEDS: DEXLANSOPRAZOLE 60 MG PO SCH (06:17)
[2018-12-13] MEDS: Acetaminophen 325 MG Tab PO PRN ×2 (06:18→18:46)
[2018-12-13] MEDS: PREGABALIN 150 MG PO SCH ×2 (09:18→21:17)
[2018-12-13] MEDS: GABAPENTIN 300 MG PO SCH ×2 (09:18→21:17)
[2018-12-13] MEDS: LACOSAMIDE 100 MG PO SCH ×2 (09:18→21:18)
[2018-12-13] MEDS: Gabapentin 600mg (own supply) PO SCH ×2 (09:19→21:18)
[2018-12-13] MEDS: Calcium Carbonate/Vitamin D3 1250 MG-200 Unit Tab PO SCH (09:20)
[2018-12-13] MEDS: guaiFENesin 600 MG Tab.ER PO SCH ×2 (09:20→21:21)
[2018-12-13] MEDS: DULOXETINE 30 MG PO SCH (09:20)
[2018-12-13] MEDS: NICOTINE 21 MG TOP SCH (09:21)
[2018-12-13] MEDS: Multivitamins with Iron/Calcium/Folic Acid/Minerals Tab PO SCH (09:33)
[2018-12-13] MEDS: [UNRECOGNIZED DRUG - REMARK] TRDERM SCH (21:21)
[2018-12-13] MEDS: FENTANYL 50 MCG TD SCH (21:21)
[2018-12-14] MEDS: Albuterol/Ipratropium 3.0-0.5 MG/3 ML Neb Soln NEB SCH ×7 (01:51→22:15)
[2018-12-14] MEDS: Acetaminophen 325 MG Tab PO PRN ×2 (04:03→11:44)
[2018-12-14 06:30] VITALS: BP 96/55; PULSE 93
[2018-12-14] MEDS: DEXLANSOPRAZOLE 60 MG PO SCH (06:30)
[2018-12-14] MEDS: DULOXETINE 30 MG PO SCH (08:51)
[2018-12-14] MEDS: PREGABALIN 150 MG PO SCH ×2 (08:52→22:16)
[2018-12-14] MEDS: LACOSAMIDE 100 MG PO SCH ×2 (08:52→22:16)
[2018-12-14] MEDS: Gabapentin 600mg (own supply) PO SCH ×2 (08:52→22:15)
[2018-12-14] MEDS: GABAPENTIN 300 MG PO SCH ×2 (08:53→22:16)
[2018-12-14] MEDS: guaiFENesin 600 MG Tab.ER PO SCH ×2 (09:03→22:16)
[2018-12-14] MEDS: Calcium Carbonate/Vitamin D3 1250 MG-200 Unit Tab PO SCH (09:03)
[2018-12-14] MEDS: Multivitamins with Iron/Calcium/Folic Acid/Minerals Tab PO SCH (09:03)
[2018-12-14] MEDS: NICOTINE 21 MG TOP SCH (11:45)
--- NOTE | 2018-12-16 21:43 | PCM.DCSUM1 ---
Discharge Summary - Hospital Course Free Text/Narrative:: Patient admitted for cares and help with ADL's due to her caregiver having knee surgery. She went home on 12/14 with family. No formal discharge process or exam was completed as this was a non skilled stay. - Discharge Data Discharge Date: 12/14/18 Discharge Disposition: Home, Self-Care 01 Condition: Stable - Patient Instructions Diet: Regular Diet as Tolerated - Discharge Plan Home Medications: Home Meds Lacosamide [Vimpat] 100 mg PO BID 07/20/13 [History] Simethicone 80 mg PO Q4H PRN 02/27/16 [History] Baclofen [Gablofen] 1,000.2 mcg IT DAILY 06/05/16 [History] Naloxone HCl [Narcan] 1 spray NS ASDIRECTED PRN 06/05/16 [History] Albuterol Sulfate [Proair Hfa] 2 puff INH Q4HR PRN 12/20/16 [History] fentaNYL [Fentanyl] 50 mcg TD Q72H 12/20/16 [History] Multivitamin [Multi-Vitamin Daily] 1 tab PO DAILY 05/03/17 [History] Pregabalin [Lyrica] 150 mg PO BID 05/03/17 [History] Calcium Carbonate/Vitamin D3 [Calcium 600 + Vit D 400 Softgl] 1 tab PO WITHBREAKFAST@0800 12/09/17 [History] Acetic Acid 10 ml IRR DAILY PRN 12/02/18 [History] Albuterol [Proventil Neb Soln] 2.5 mg NEB Q4HRRT PRN 12/02/18 [History] Calcium Carbonate 500 mg PO DAILY 12/02/18 [History] DULoxetine [Cymbalta] 30 mg PO DAILY 12/02/18 [History] Dexlansoprazole [Dexilant] 60 mg PO DAILY 12/02/18 [History] Docusate Sodium [Colace] 100 mg PO BID PRN 12/02/18 [History] Gabapentin [Neurontin] 300 mg PO BID 12/02/18 [History] Gabapentin [Neurontin] 600 mg PO BID 12/02/18 [History] Nicotine [Habitrol] 42 mg TRDERM DAILY 12/02/18 [History] traZODone HCl [Trazodone HCl] 50 mg PO BEDTIME PRN 12/02/18 [History] - Discharge Summary/Plan Comment DC Time >30 min.: No - Patient Data Vitals - Most Recent: Last Vital Signs Temp 98.2 F 12/14/18 06:00 Pulse 93 12/14/18 06:00 Resp 16 12/14/18 06:00 BP 96/55 L 12/14/18 06:00 Pulse Ox 94 L 12/14/18 06:00 Weight - Most Recent: 70.307 kg Med Orders - Current: Current Medications Discontinued Medications Acetaminophen (Tylenol) 650 mg PO Q6H PRN PRN Reason: Pain Last Admin: 12/14/18 11:44 Dose: 650 mg Acetic Acid (Acetic Acid 2% Otic Soln) 10 ml .XX DAILY PRN PRN Reason: Pressure ulcer Albuterol (Proventil Neb Soln) 2.5 mg NEB Q4HRRT PRN PRN Reason: Shortness of Breath Last Admin: 12/07/18 21:50 Dose: 2.5 mg Albuterol (Proventil Neb Soln) 2.5 mg NEB Q4HRRT [facility] Last Admin: 12/07/18 02:56 Dose: 2.5 mg Albuterol/Ipratropium (Duoneb 3.0-0.5 Mg/3 Ml) 3 ml NEB Q4HRRT [facility] Last Admin: 12/14/18 22:15 Dose: Not Given Calcium Carbonate (Calcium Carbonate/Vitamin D 1250 Mg-200 Unit) 1 tab PO WITHBREAKFAST@0800 [facility] Last Admin: 12/14/18 09:03 Dose: Not Given Docusate Sodium (Colace) 100 mg PO BID PRN PRN Reason: Constipation Guaifenesin (Mucinex) 600 mg PO BID [facility] Guaifenesin (Mucinex) 600 mg PO BID [facility] Last Admin: 12/14/18 22:16 Dose: Not Given Miconazole (Desenex 2%) 1 gm TOP BID PRN PRN Reason: Rash Last Admin: 12/10/18 20:00 Dose: 1 dose Miscellaneous Information (Remove Patch) 1 ea TRDERM Q72H [facility] Last Admin: 12/13/18 21:21 Dose: 1 ea Multivitamins/Minerals (Thera M Plus) 1 tab PO DAILY [facility] Last Admin: 12/14/18 09:03 Dose: Not Given Albuterol Inhaler ( (Own Supply)) 0 each INH Q4HR PRN PRN Reason: Wheezing Baclofen [Gablofen] (Intrathecal Pump) 0 mcg IT ASDIRECTED BRET Dexlansoprazole [ Dexilant] 60mg (Own Supply) 0 mg PO DAILY [facility] Last Admin: 12/07/18 08:49 Dose: 60 mg Fentanyl Patch 50mcg ((Own Supply)) 0 mcg TD Q72H [facility] Last Admin: 12/07/18 21:52 Dose: 50 mcg Gabapentin 600mg ( (Own Supply)) 0 mg PO BID [facility] Last Admin: 12/14/18 22:15 Dose: Not Given Ipratropium [ Atrovent 0.06% Nasal Howard] 2 sprays NASBOTH TID [facility] Last Admin: 12/03/18 14:35 Dose: Not Given Lacosamide [Vimpat] (100mg (Own Supply)) 0 mg PO BID [facility] Last Admin: 12/14/18 22:16 Dose: Not Given Naloxone Hcl [Narcan (] 1 Howard)) 1 spray NS ASDIRECTED PRN PRN Reason: narcotic OD Pregabalin [Lyrica] (150mg (Own Supply)) 0 mg PO BID [facility] Last Admin: 12/14/18 22:16 Dose: Not Given Duloxetine. 30mg 1 each PO DAILY [facility] Last Admin: 12/14/18 08:51 Dose: 1 each Trazodone. 50mg (Own (Supply)) 1 each PO BEDTIME PRN PRN Reason: Insomnia Gabapentin. 300mg ( (Own Supply)) 1 each PO BID [facility] Last Admin: 12/14/18 22:16 Dose: Not Given Nicotine. 21mg Patch ((Own Supply)) 2 each TOP DAILY [facility] Last Admin: 12/14/18 11:45 Dose: 2 each Non-Formulary Medication (Simethicone. 125mg Soft Gels) 1 each PO Q4H PRN PRN Reason: Gas Fentanyl 50mcg Patch (#Ptom#) 50 mcg TD Q72H [facility] Last Admin: 12/04/18 22:22 Dose: 50 mcg Fentanyl 50mcg Patch (#Ptom#) 0 mcg TD Q72H [facility] Last Admin: 12/13/18 21:21 Dose: 50 mcg Dexlansoprazole [ Dexilant] 60mg (Own Supply) 0 mg PO DAILY@0630 [facility] Last Admin: 12/14/18 06:30 Dose: 60 mg
== END 2018-12-14 22:00 | disposition home or self-care (01) | DRG 559 ==
LOC: VM.MS 20:16
PROVIDERS: ADMIT Internal Medicine; ATTEND Internal Medicine
DX: Z47.1 Aftercare following joint replacement surgery (principal); L89.154 Pressure ulcer of sacral region, stage 4; G82.20 Paraplegia, unspecified; M86.9 Osteomyelitis, unspecified; G89.29 Other chronic pain; F41.1 Generalized anxiety disorder; I10 Essential (primary) hypertension; R09.02 Hypoxemia; F17.210 Nicotine dependence, cigarettes, uncomplicated; K21.9 Gastro-esophageal reflux disease without esophagitis; G62.9 Polyneuropathy, unspecified; J42 Unspecified chronic bronchitis; F32.9 Major depressive disorder, single episode, unspecified; E55.9 Vitamin D deficiency, unspecified; N31.9 Neuromuscular dysfunction of bladder, unspecified; Z96.659 Presence of unspecified artificial knee joint; Z98.890 Other specified postprocedural states; Z90.49 Acquired absence of other specified parts of digestive tract; Z90.89 Acquired absence of other organs; Z79.899 Other long term (current) drug therapy; Z88.2 Allergy status to sulfonamides; Z90.710 Acquired absence of both cervix and uterus
CPT/HCPCS: 51702; 94640; A9270-GY; J7613-GY; J7620-GY